=== PATIENT | male | born 1965 | race Caucasian/White ===

== ENCOUNTER 2016-03-03 11:11 | Outpatient (RCR) | payer OTHER ==
[~2016-03-03 11:11] MED LIST: ALPR1T PO; ALPR1TAB2 PO; BENZ200C25 PO; BUDE6HFA IH; CPR500T PO; CYCL10TA9 PO; FURO20TA4 PO; HYDR-623 PO; KETO-22 PO; LEVO750T6 PO; LORA1TAB PO; METH4TAB PO; ONDAN4ODT PO; OXYC1CAP3 PO; POTA10CA16 PO; RT-COMBINH IH; TMSL.4C PO; TRAM50TA2 PO
--- OUTSIDE RECORDS SUMMARY | 2016-03-03 11:14 | XMS REPORT | Continuity of Care Document ---
Author Author [facility] Organization [facility] Address Unknown Phone Unavailable Care Team Providers Care Assistive Technology Specialist Name Role Phone AntwanHarpreet PCP [phone] Source Comments Some departments are not documenting in the electronic medical record. If you do not see the information that you expected, contact Release of Information in the Health Information Management department at [phone] for further assistance in locating additional records.[facility] Active Allergies and Adverse Reactions No Known Allergies Current Medications Prescription Sig. Disp. Refills Start End Date Status Date OLANZAPINE/FLUOXETINE HCL Take by mouth. Active (SYMBYAX PO) lactulose 10 gram/15 mL Titrate to 3-5 BMs/day 1892 mL 11 12/31/19 Active oral solution 14 gabapentin (NEURONTIN) Take 3 Caps by mouth 270 Cap 11 11/03/19 Active 300 mg capsule three times daily. 15 nadolol(+) (CORGARD) 20 Take 1 Tab by mouth 90 Tab 3 11/30/19 Active mg tablet daily. Take at bedtime. 16 warfarin (COUMADIN) 3 mg Take 1 Tab by mouth 90 Tab 3 11/30/19 Active tablet daily. 16 propranolol (INDERAL) 20 Take 1 Tab by mouth twice 180 Tab 3 12/03/19 Active mg tablet daily. 16 carvedilol (COREG) 3.125 Take 1 Tab by mouth twice 180 Tab 3 12/03/19 Active mg tablet daily with meals. 16 sofosbuvir-velpatasvir Take 1 Tab by mouth 28 Tab 2 12/31/19 Active (EPCLUSA) 400-100 mg daily. Take at the same 16 tablet time everyday. Indications: CHRONIC HEPATITIS C - GENOTYPE 1 spironolactone Take 1 Tab by mouth 90 Tab 3 12/31/19 Active (ALDACTONE) 100 mg tablet daily. 16 furosemide (LASIX) 40 mg Take 1 Tab by mouth 90 Tab 3 12/31/19 Active tablet daily. 16 ribavirin (RIBATAB) 200 Take 3 Tabs by mouth 252 Tab 0 01/29/20 Active mg tablet daily. Take 2 tablets in 16 the morning and 1 in the evening. riFAXIMin (XIFAXAN) 550 Take 550 mg by mouth Active mg tablet every 12 hours. Active Problems Problem Noted Date Hepatitis C 09/23/2013 Cirrhosis (HCC) 09/23/2013 Alcoholic hepatitis 09/23/2013 Hepatic encephalopathy (HCC) 09/23/2013 Edema 09/23/2013 Most Recent Encounters Date Type Specialty Providers Description 01/31/2016 Telephone Hepatology Liz Hobson PHARMD Medication Follow- up 01/31/2016 Telephone Hepatology Luis Fierro MD Other - medication 01/29/2016 Telephone Hepatology Abeba Leone PHARMD Medication Follow-up 01/29/2016 Orders Only Hepatology Madelyn Osullivan PHARMD 01/28/2016 Documentation Transplant Surgery Ivania De Dios 01/22/2016 Scan Only HepatLuis Grigsby MD 01/18/2016 Telephone Hepatology Liz Hobson PHARMD Medication Follow- up 01/17/2016 Telephone Hepatology Liz Hobson PHARMD Medication Follow- up 01/17/2016 Documentation Kwame Cuenca 01/16/2016 Telephone HepatLuis Grigsby MD Other - medication 01/16/2016 Telephone HepatLuis Grigsby MD Results 01/10/2016 Orders Only HepatDamari Clark Hepatitis C virus infection without hepatic coma, unspecified chronicity; Other cirrhosis of liver (HCC) 01/02/2016 Scan Only HepatLuis Grigsby MD 12/31/2015 Office Visit Hepatology Luis Fierro MD Hepatic cirrhosis , unspecified hepatic cirrhosis type (HCC) (Primary Dx); Hepatitis C virus infection, unspecified chronicity; Edema, unspecified type 12/28/2015 Telephone HepatLuis Grigsby MD Results 12/27/2015 Orders Only HepatDamari Clark Other cirrhosis of liver (HCC); Hepatitis C virus infection without hepatic coma, unspecified chronicity 12/26/2015 Orders Only HepatDamari Clark Other cirrhosis of liver (HCC); Hepatitis C virus infection without hepatic coma, unspecified chronicity 12/26/2015 Telephone Hepatology Luis Fierro MD Other 12/24/2015 Telephone Hepatology Luis Fierro MD Patient Reminder Call 12/20/2015 Orders Only Transplant Surgery Lula Cintron Other cirrhosis of liver (HCC); Hepatitis C virus infection without hepatic coma, unspecified chronicity 12/18/2015 Telephone Transplant Surgery GaleMadelyn mcdaniel Follow Up 12/18/2015 Scan Only Hepatology Luis Fierro MD 12/17/2015 Telephone Hepatology Luis Fierro MD Results 12/14/2015 Orders Only Hepatology Leeanne Morris Hepatitis C virus infection without hepatic coma, unspecified chronicity; Other cirrhosis of liver (HCC) 12/11/2015 Telephone Hepatology Luis Fierro MD Follow-up Phone Call 12/06/2015 Orders Only Hepatology Damari Griffin Hepatitis C virus infection, unspecified chronicity; Hepatic cirrhosis, unspecified hepatic cirrhosis type (HCC); Alcoholic hepatitis without ascites 12/06/2015 Orders Only Hepatology Luis Fierro MD Hepatitis C virus infection, unspecified chronicity (Primary Dx); Hepatic cirrhosis, unspecified hepatic cirrhosis type (HCC); Alcoholic hepatitis without ascites 12/05/2015 Documentation BartolomeLaci moraesine 12/05/2015 Scan Only Hepatology Luis Fierro MD 12/05/2015 Telephone Hepatology Luis Fierro MD Results 12/04/2015 Orders Only Hepatology Leeanne Morris Hepatitis C virus infection without hepatic coma, unspecified chronicity 12/04/2015 Scan Only Hepatology Luis Fierro MD 12/03/2015 Telephone Hepatology Luis Fierro MD Medication Problem Social History Tobacco Use Types Packs/Day Years Used Date Current Every Day Smoker Tobacco Cessation: Ready to Quit: Yes; Counseling Given: No Comments: 1 pack every 3 day's Alcohol Use Drinks/Week oz/Week Comments Yes occationally Last Filed Vital Signs Vital Sign Reading Time Taken Blood Pressure 144/77 12/31/2015 1:59 PM CDT Pulse 58 12/31/2015 1:59 PM CDT Temperature 36.6 C (97.9 F) 12/31/2015 1:59 PM CDT Respiratory Rate 18 12/31/2015 1:59 PM CDT Height 1.905 m (6' 3") 12/31/2015 1:59 PM CDT Weight 106.051 kg (233 lb 12.8 12/31/2015 1:59 PM CDT oz) Body Mass Index 29.22 12/31/2015 1:59 PM CDT Oxygen Saturation 98% 12/31/2015 1:59 PM CDT Plan of Care Date Type Specialty Providers Description 06/30/2016 Appointment Hepatology Luis Fierro MD [address] [facility] [address] [place] [address] [phone] (Fax) Health Maintenance Due Date Last Done Comments Physical (Comprehensive) 10/23/1971 Exam Pertussis Vaccine 10/23/1975 Tetanus Vaccine 1981 Colorectal Cancer 2014 Screening Influenza Vaccine 01/10/2016 Results from Last 3 Months PROTIME INR (PT) (01/10/2016 11:52 AM)Only the most recent of 3 results within the time period is included. Component Value Range Protime 23.8 (H) 12.2-14.7 SEC INR 2.2 (H) 0.8-1.4 Specimen Blood Narrative Outside Lab Verified by Damari Nguyen on 01/10/2016. COMPREHENSIVE METABOLIC PANEL (01/10/2016 11:52 AM)Only the most recent of 3 results within the time period is included. Component Value Range Sodium 142 135-145 MMOL/L Potassium 3.9 3.6-5.0 MMOL/L Chloride 112 (H) 98-107 MMOL/L CO2 24 21-32 MMOL/L Anion Gap 6 5-14 MMOL/L Blood Urea Nitrogen 9 7-18 MG/DL Creatinine 0.89 0.60-1.30 MG/DL eGFR Non >60 mL/min/1.73 Glucose 129 (H) 70-105 MG/DL Total Bilirubin 2.2 (H) 0.1-1.0 MG/DL Alk Phosphatase 83 40-136 U/L AST (SGOT) 53 (H) 5-34 H ALT (SGPT) 42 0-55 U/L Total Protein 5.6 (L) 6.4-8.2 G/DL Albumin 3.0 (L) 3.2-4.5 G/DL Calcium 8.0 (L) 8.5-10.1 mg/dl Specimen Blood Narrative Outside Lab Verified by Damari Nguyen on 01/10/2016. CBC AND DIFF (01/10/2016 11:52 AM)Only the most recent of 3 results within the time period is included. Component Value Range Absolute Neutrophil Count 1.5 (L) 1.8-7.8 10^3/ul Absolute Lymph Count 1.8 1.0-4.0 10^3/ul Absolute Monocyte Count 0.5 0.0-1.0 10^3/ul Absolute Eosinophil Count 0.2 0.0-0.3 10^3/ul Absolute Basophil Count 0.0 0.0-0.1 10^3/ul White Blood Cells 4.0 (L) 4.3-11.0 10^3/ul RBC 4.11 (L) 4.35-5.85 10^6/uL Hemoglobin 13.8 13.3-17.7 g/dl Hematocrit 39 (L) 40-54 % MCV 94 80-99 fl MCH 34 25-34 pg MCHC 36 32-36 g/dl Platelet Count 93 (L) 130-400 10^3/ul Neutrophils 37 (L) 42-75 % Lymphocytes 46 (H) 12-44 % Monocytes 13 (H) 0-12 % Eosinophil 4 0-10 % Basophil 1 0-10 % Specimen Blood Narrative Outside Lab Verified by Damari Nguyen on 01/10/2016.
[2016-03-03 11:29] LABS: BASOPHILS % (AUTO) 1 % (0-10); EOSINOPHILS # (AUTO) 0.1 10^3/uL (0.0-0.3); EOSINOPHILS % (AUTO) 3 % (0-10); LYMPHOCYTES # (AUTO) 1.6 X 10^3 (1.0-4.0); LYMPHOCYTES % (AUTO) 33 % (12-44); MEAN CORPUSCULAR HEMOGLOBIN 33 PG (25-34); MEAN CORPUSCULAR HGB CONC 35 G/DL (32-36); MEAN CORPUSCULAR VOLUME 94 FL (80-99); MEAN PLATELET VOLUME 10.8 FL (7.4-10.4); MONOCYTES # (AUTO) 0.6 X 10^3 (0.0-1.0); MONOCYTES % (AUTO) 13 % (0-12); NEUTROPHILS # (AUTO) 2.4 X 10^3 (1.8-7.8); NEUTROPHILS % (AUTO) 51 % (42-75); PLATELET COUNT 98 10^3/uL (130-400); RED BLOOD COUNT 3.83 10^6/uL (4.35-5.85); RED CELL DISTRIBUTION WIDTH 14.1 % (10.0-14.5); WHITE BLOOD COUNT 4.8 10^3/uL (4.3-11.0)
[2016-03-03 11:37] LABS: INR 2.1 (0.8-1.4); PROTHROMBIN TIME PATIENT 23.1 SEC (12.2-14.7)
[2016-03-03 11:50] LABS: ALANINE AMINOTRANSFERASE 14 U/L (0-55); ALBUMIN 2.8 G/DL (3.2-4.5); ANION GAP 5 MMOL/L (5-14); ASPARTATE AMINO TRANSFERASE 25 U/L (5-34); BILIRUBIN,TOTAL 2.9 MG/DL (0.1-1.0); BLOOD UREA NITROGEN 6 MG/DL (7-18); BUN/CREATININE RATIO 8; CALCIUM 7.8 MG/DL (8.5-10.1); CARBON DIOXIDE 21 MMOL/L (21-32); CHLORIDE 112 MMOL/L (98-107); CREATININE SERUM 0.74 MG/DL (0.60-1.30); GFR ESTIMATED > 60; GLUCOSE 135 MG/DL (70-105); POTASSIUM 3.7 MMOL/L (3.6-5.0); SODIUM 138 MMOL/L (135-145); TOTAL PROTEIN 5.4 G/DL (6.4-8.2)
[2016-03-04 09:38] LABS: ALPHA-FETO PROTEIN MARKER 4.6 ng/mL (1.5-10.0)
[2016-03-05 15:14] LABS: HEP C COPIES ML <12 IU/mL (<=11); HEPATITIS C LOG ML Detected <1.08 (Not Detected)
== END 2016-06-01 | disposition home or self-care (01) ==
LOC: LAB 11:11
PROVIDERS: ATTEND Internal Medicine
DX: B19.20 Unspecified viral hepatitis C without hepatic coma (principal); K74.69 Other cirrhosis of liver
CPT/HCPCS: 36415; 80053; 82105; 85025; 85610; 87522

== ENCOUNTER 2016-04-01 11:03 | Outpatient (RCR) | payer OTHER ==
--- OUTSIDE RECORDS SUMMARY | 2016-04-01 11:08 | XMS REPORT | Continuity of Care Document ---
Author Author [facility] Organization [facility] Address Unknown Phone Unavailable Care Team Providers Care Wood Floor Refinisher Name Role Phone AntwanHarpreet PCP [phone] Source Comments Some departments are not documenting in the electronic medical record. If you do not see the information that you expected, contact Release of Information in the Health Information Management department at [phone] for further assistance in locating additional records.[facility] Active Allergies and Adverse Reactions No Known [...] Recent Encounters Date Type Specialty Providers Description 03/10/2016 Orders Only Hepatology Damari Griffin Hepatitis C virus infection, unspecified chronicity; Other cirrhosis of liver (HCC) 03/07/2016 Telephone Hepatology Luis Fierro MD Results 03/06/2016 Orders Only Hepatology Damari Griffin Hepatitis C virus infection, unspecified chronicity; Other cirrhosis of liver (HCC) 03/05/2016 Orders Only Hepatology Damari Griffin Hepatitis C virus infection, unspecified chronicity; Other cirrhosis of liver (HCC) 03/05/2016 Telephone Hepatology Luis Fierro MD Follow-up Phone Call 01/31/2016 Telephone Hepatology Liz Hobson PHARMD Medication Follow- up 01/31/2016 Telephone HepatLuis Grigsby MD Other - medication 01/29/2016 Telephone Hepatology Abeba Leone PHARMD Medication Follow-up 01/29/2016 Orders Only Hepatology Madelyn Osullivan, [place] 01/28/2016 Documentation Transplant Surgery Ivania De Dios 01/22/2016 Scan Only HepatLuis Grigsby MD 01/18/2016 Telephone Hepatology Liz Hobson PHARMD Medication Follow- up 01/17/2016 Telephone Hepatology Liz Hobson PHARMD Medication Follow- up 01/17/2016 Documentation Kwame Cuenca 01/16/2016 Telephone HepatLuis Grigsby MD Other - medication 01/16/2016 Telephone HepatLuis Grigsby MD Results 01/10/2016 Orders Only Hepatology Damari Griffin Hepatitis C virus infection without hepatic coma, unspecified chronicity; Other cirrhosis of liver (HCC) 01/02/2016 Scan Only Hepatology Luis Fierro MD 12/31/2015 Office Visit Hepatology Luis Fierro MD Hepatic cirrhosis , unspecified hepatic cirrhosis type (HCC) (Primary Dx); Hepatitis C virus infection, unspecified chronicity; Edema, unspecified type Social History Tobacco Use Types Packs/Day Years [...] 12/31/2015 1:59 PM CDT Plan of Care Health Maintenance Due Date Last Done Comments Physical (Comprehensive) 10/23/1971 Exam Pertussis Vaccine 10/23/1975 Tetanus Vaccine 1981 Colorectal Cancer 2014 Screening Influenza Vaccine 01/10/2016 Results from Last 3 Months HEPATITIS C VIRAL LOAD PCR QUANT (03/03/2016 11:22 AM) Component Value Range Hepatitis C PCR <12 <=11 iu/ml Quantitative Specimen Blood Narrative Outside Lab Verified by Damari Nguyen on 03/10/2016. COMPREHENSIVE METABOLIC PANEL (03/03/2016 11:22 AM)Only the most recent of 2 results within the time period is included. Component Value Range Sodium 138 135-145 MMOL/L Potassium 3.7 3.6-5.0 MMOL/L Chloride 112 (H) 98-107 MMOL/L CO2 21 21-32 MMOL/L Anion Gap 5 5-14 MMOL/L Blood Urea Nitrogen 6 (L) 7-18 MG/DL Creatinine 0.74 0.60-1.30 MG/DL eGFR Non >60 mL/min/1.73 M2 Glucose 135 (H) 70-105 H Calcium 7.8 (L) 8.5-10.1 MG/DL Total Bilirubin 2.9 (H) 0.1-1.0 H Alk Phosphatase 102 40-136 U/L AST (SGOT) 25 5-34 U/L ALT (SGPT) 14 0-55 U/L Total Protein 5.4 (L) 6.4-8.2 G/DL Albumin 2.8 (L) 3.2-4.5 G/DL Specimen Blood Narrative Outside Lab Verified by Damari Nguyen on 03/06/2016. PROTIME INR (PT) (03/03/2016 11:22 AM)Only the most recent of 2 results within the time period is included. Component Value Range Protime 23.1 (H) 12.2-14.7 SEC INR 2.1 (H) 0.8-1.4 Specimen Blood Narrative Outside Lab Verified by Damari Nguyen on 03/06/2016. CBC AND DIFF (03/03/2016 11:22 AM)Only the most recent of 2 results within the time period is included. Component Value Range Absolute Neutrophil Count 2.4 1.8-7.8 10^3/uL Absolute Lymph Count 1.6 1.0-4.0 10^3/uL Absolute Monocyte Count 0.6 0.0-1.0 10^3/uL Absolute Eosinophil Count 0.1 0.0-0.3 10^3/uL Absolute Basophil Count 0.0 0.0-0.1 10^3/uL White Blood Cells 4.8 4.3-11.0 10^3/uL RBC 3.83 (L) 4.35-5.85 10^6/ul Hemoglobin 12.6 (L) 13.3-17.7 g/dl Hematocrit 36 (L) 40-54 % MCV 94 80-99 fl MCH 33 25-34 pg MCHC 35 32-36 g/dl Platelet Count 98 (L) 130-400 10^3/uL Neutrophils 51 42-75 % Lymphocytes 33 12-44 % Monocytes 13 (H) 0-12 % Eosinophil 3 0-10 % Basophil 1 0-10 % Specimen Blood Narrative Outside Lab Verified by Damari Nguyen on 03/06/2016. ALPHA FETO PROTEIN (AFP) (03/03/2016 11:22 AM) Component Value Range Alpha Feto Protein 4.6 1.5-10.0 ng/ml Specimen Blood Narrative Outside Lab Verified by Damari Nguyen on 03/05/2016.
[2016-04-01 11:29] LABS: BASOPHILS % (AUTO) 1 % (0-10); EOSINOPHILS # (AUTO) 0.2 10^3/uL (0.0-0.3); EOSINOPHILS % (AUTO) 5 % (0-10); LYMPHOCYTES # (AUTO) 1.4 X 10^3 (1.0-4.0); LYMPHOCYTES % (AUTO) 41 % (12-44); MEAN CORPUSCULAR HEMOGLOBIN 33 PG (25-34); MEAN CORPUSCULAR HGB CONC 35 G/DL (32-36); MEAN CORPUSCULAR VOLUME 95 FL (80-99); MEAN PLATELET VOLUME 10.9 FL (7.4-10.4); MONOCYTES # (AUTO) 0.4 X 10^3 (0.0-1.0); MONOCYTES % (AUTO) 13 % (0-12); NEUTROPHILS # (AUTO) 1.3 X 10^3 (1.8-7.8); NEUTROPHILS % (AUTO) 40 % (42-75); PLATELET COUNT 93 10^3/uL (130-400); RED CELL DISTRIBUTION WIDTH 14.3 % (10.0-14.5); WHITE BLOOD COUNT 3.3 10^3/uL (4.3-11.0)
[2016-04-01 11:44] LABS: INR 1.9 (0.8-1.4); PROTHROMBIN TIME PATIENT 21.3 SEC (12.2-14.7)
[2016-04-01 11:51] LABS: ALANINE AMINOTRANSFERASE 14 U/L (0-55); ALBUMIN 2.8 G/DL (3.2-4.5); ANION GAP 5 MMOL/L (5-14); ASPARTATE AMINO TRANSFERASE 25 U/L (5-34); BILIRUBIN,TOTAL 1.9 MG/DL (0.1-1.0); BLOOD UREA NITROGEN 7 MG/DL (7-18); BUN/CREATININE RATIO 9; CALCIUM 7.9 MG/DL (8.5-10.1); CARBON DIOXIDE 21 MMOL/L (21-32); CHLORIDE 111 MMOL/L (98-107); CREATININE SERUM 0.77 MG/DL (0.60-1.30); GFR ESTIMATED > 60; GLUCOSE 229 MG/DL (70-105); POTASSIUM 3.7 MMOL/L (3.6-5.0); SODIUM 137 MMOL/L (135-145)
[2016-04-02 06:39] LABS: ALPHA-FETO PROTEIN MARKER 4.8 ng/mL (1.5-10.0)
[2016-04-07 15:18] LABS: HEP C COPIES ML Not Detected (<=11)
[2016-04-08 07:43] LABS: HEPATITIS C LOG ML Not Detected (Not Detected)
== END 2016-06-30 | disposition home or self-care (01) ==
LOC: LAB 11:03
PROVIDERS: ATTEND Internal Medicine
DX: B19.20 Unspecified viral hepatitis C without hepatic coma (principal); K74.69 Other cirrhosis of liver
CPT/HCPCS: 36415; 80053; 82105; 85025; 85610; 87522

== ENCOUNTER → 2016-06-24 | Outpatient (CLI) | payer OTHER ==
[~2016-06-24] MED LIST changes: +PANT40TA2 PO; +SUCR1TAB36 PO; +WARF1TAB6 PO
--- OUTSIDE RECORDS SUMMARY | 2016-06-24 09:08 | XMS REPORT | Continuity of Care Document ---
Author Author [facility] Organization [facility] Address Unknown Phone Unavailable Care Team Providers Care Charting Clerk Name Role Phone AntwanHarpreet PCP [phone] Source Comments Some departments are not documenting in the electronic medical record. If you do not see the information that you expected, contact Release of Information in the Health Information Management department at [phone] for further assistance in locating additional records.[facility] Active Allergies and Adverse Reactions [...] Recent Encounters Date Type Specialty Providers Description 06/11/2016 Telephone Hepatology Luis Fierro MD Other - medication/ lab questions 05/08/2016 Orders Only Hepatology Damari Griffin Hepatitis C virus infection, unspecified chronicity; Other cirrhosis of liver (HCC) 04/10/2016 Orders Only HepatDamari Clark Hepatitis C virus infection, unspecified chronicity; Other cirrhosis of liver (HCC) 04/09/2016 Orders Only Hepatology Damari Griffin Hepatitis C virus infection, unspecified chronicity; Other cirrhosis of liver (HCC) 04/09/2016 Telephone Hepatology Luis Fierro MD Results 04/07/2016 Orders Only HepatDamari Clark Hepatitis C virus infection, unspecified chronicity; Other cirrhosis of liver (HCC) Social History Tobacco Use Types Packs/Day Years [...] of Care Date Type Specialty Providers Description 07/14/2016 Appointment Hepatology Luis Fierro MD [address] [facility] [address] [place] [address] [phone] (Fax) Health Maintenance Due Date Last Done Comments Physical (Comprehensive) 10/23/1971 Exam Pertussis Vaccine 10/23/1975 Tetanus Vaccine 1981 Colorectal Cancer 2014 Screening Influenza Vaccine 01/10/2016 Results from Last 3 Months CBC AND DIFF (05/06/2016 1:30 PM)Only the most recent of 2 results within the time period is included. Component Value Range White Blood Cells 4.6 4.3-11.0 uL RBC 3.54 (L) 4.35-5.85 10^6/uL Hemoglobin 11.6 (L) 13.3-17.7 G/DL Hematocrit 34 (L) 40-54 % MCV 95 80-99 FL MCH 33 25-34 PG MCHC 35 32-36 G/DL Platelet Count 122 (L) 130-400 10^3/uL Neutrophils 64 42-75 % Lymphocytes 27 12-44 % Monocytes 7 0-12 % Eosinophil 2 0-10 % Basophil 0 % Absolute Lymph Count 1.2 1.0-4.0 10^3/uL Absolute Monocyte Count 0.3 0.0-1.0 10^3/uL Absolute Eosinophil Count 0.1 0.0-0.3 10^3/uL Absolute Basophil Count 0.0 0.0-0.1 10^3/uL Absolute Neutrophil Count 2.9 1.8-7.8 10^3/uL Specimen Blood Narrative Outside Lab Verified by Damari Nguyen on 05/08/2016. HEPATITIS C VIRAL LOAD PCR QUANT (04/01/2016 11:18 AM) Component Value Range Hepatitis C PCR not detected Quantitative Specimen Blood Narrative Outside Lab Verified by Damari Nguyen on 04/10/2016. ALPHA FETO PROTEIN (AFP) (04/01/2016 11:18 AM) Component Value Range Alpha Feto Protein 4.8 1.5-10.0 ng/ml Specimen Blood Narrative Outside Lab Verified by Damari Nguyen on 04/07/2016. PROTIME INR (PT) (04/01/2016 11:18 AM) Component Value Range Protime 21.3 (H) 12.2-14.7 SEC INR 1.9 (H) 0.8-1.4 Specimen Blood Narrative Outside Lab Verified by Damari Nguyen on 04/07/2016. COMPREHENSIVE METABOLIC PANEL (04/01/2016 11:18 AM) Component Value Range Sodium 137 135-145 MMOL/L Potassium 3.7 3.6-5.0 MMOL/L Chloride 111 (H) 98-107 MMOL/L CO2 21 21-32 MMOL/L Anion Gap 5 5-14 MMOL/L Blood Urea Nitrogen 7 7-18 MG/DL Creatinine 0.77 0.60-1.30 MG/DL eGFR Non >60 mL/min/1.73 M2 Glucose 229 (H) 70-105 H Calcium 7.9 (L) 8.5-10.1 MG/DL Total Bilirubin 1.9 (H) 0.1-1.0 H Alk Phosphatase 92 40-136 U/L AST (SGOT) 25 5-34 U/L ALT (SGPT) 14 0-55 U/L Total Protein 5.0 (L) 6.4-8.2 G/DL Albumin 2.8 (L) 3.2-4.5 G/DL Specimen Blood Narrative Outside Lab Verified by Damari Nguyen on 04/07/2016.
--- NOTE | 2016-06-24 13:01 | Diagnostic Imaging Report ---
EXAMINATION: Doppler vascular ultrasound. INDICATION: Cirrhosis. History of portal venous thrombosis. FINDINGS: The pancreas is obscured by bowel loops. There is occlusion of the main portal vein with prominence of the hepatic artery branches centrally. There is no focal hepatic mass. The gallbladder demonstrates no stones, wall thickening or pericholecystic fluid. CBD is obscured. The spleen is slightly enlarged at 14 cm in length. The visualized portions of the IVC near the confluence of the hepatic veins appear patent with color flow seen. The right kidney is 11.6 cm and the left kidney is 13.8 cm in length. No hydronephrosis or focal lesion seen. The splenic vein and splenic artery appear patent. No ascites seen. 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 Mild to moderate splenomegaly. Dictated by: Dictated on workstation # [id number]
== END ==
LOC: RAD 09:05
PROVIDERS: ATTEND Internal Medicine
DX: K74.69 Other cirrhosis of liver (principal); I82.90 Acute embolism and thrombosis of unspecified vein
CPT/HCPCS: 93975

== ENCOUNTER 2016-08-14 14:43 | Outpatient (RCR) | payer OTHER ==
--- OUTSIDE RECORDS SUMMARY | 2016-07-24 10:47 | XMS REPORT | Continuity of Care Document ---
Author Author [facility] Organization [facility] Address Unknown Phone Unavailable Care Team Providers Care Certified Juvenile Probation Officer Name Role Phone Viviennemechelle Brendan PCP [phone] Source Comments Some departments are not documenting in the electronic medical record. If you do not see the information that you expected, contact Release of Information in the Health Information Management department at [phone] for further assistance in locating additional records.[facility] Active Allergies and Adverse Reactions [...] mg tablet daily. Take at bedtime. 16 propranolol (INDERAL) 20 Take 1 Tab [...] 1 Tab by mouth 90 Tab 3 08/22/20 Active tablet daily. 16 ribavirin (RIBATAB) 200 Take 3 Tabs by mouth 252 Tab 0 01/29/20 Active mg tablet daily. Take 2 tablets in 16 the morning and 1 in the evening. riFAXIMin (XIFAXAN) 550 Take 550 mg by mouth Active mg tablet every 12 hours. warfarin (COUMADIN) 3 mg Take 0.5 Tabs by mouth 45 Tab 3 07/15/19 Active tablet daily. 17 warfarin (COUMADIN) 3 mg Take 1 Tab by mouth 90 Tab 3 11/30/1907/14 Discontin tablet daily. 16 17 ued Active Problems Problem Noted Date Hepatitis C 09/23/2013 Cirrhosis (HCC) 09/23/2013 Alcoholic hepatitis 09/23/2013 Hepatic encephalopathy (HCC) 09/23/2013 Edema 09/23/2013 Most Recent Encounters Date Type Specialty Providers Description 07/24/2016 Telephone Hepatology Luis Fierro MD Follow-up Phone Call 07/16/2016 Telephone Hepatology Luis Fierro MD Results 07/16/2016 Telephone Hepatology Luis Fierro MD Appointment 07/14/2016 [facility] Luis Fierro MD Unspecified cirrhosis of Encounter liver (HCC) 07/14/2016 Office Visit Hepatology Luis Fierro MD Hepatic cirrhosis , unspecified hepatic cirrhosis type (Primary Dx); Hepatitis C virus infection, unspecified chronicity; Screening for colorectal cancer; Hepatitis C virus infection without hepatic coma, unspecified chronicity; Other cirrhosis of liver (HCC); Hepatic encephalopathy (HCC) 07/07/2016 Telephone Hepatology Luis Fierro MD Patient Reminder Call 07/03/2016 Telephone Hepatology Luis Fierro MD Results 06/27/2016 Orders Only Hepatology Kristin Alfaro LPN Other cirrhosis of liver (HCC); Thrombosis 06/11/2016 Telephone Hepatology Luis Fierro MD Other [...] Vital Sign Reading Time Taken Blood Pressure 152/82 07/14/2016 12:46 PM THERMOMETER TESTER Pulse 98 07/14/2016 12:46 PM THERMOMETER TESTER Temperature 36.8 C (98.3 F) 07/14/2016 12:46 PM THERMOMETER TESTER Respiratory Rate 20 07/14/2016 12:46 PM THERMOMETER TESTER Height 1.905 m (6' 3") 07/14/2016 12:46 PM THERMOMETER TESTER Weight 104.327 kg (230 lb) 07/14/2016 12:46 PM THERMOMETER TESTER Body Mass Index 28.75 07/14/2016 12:46 PM THERMOMETER TESTER Oxygen Saturation 98% 07/14/2016 12:46 PM THERMOMETER TESTER Plan of Care Date Type Specialty Providers Description 12/15/2016 Appointment Radiology Luis Fierro MD [address] [facility] [address] [place] [address] [phone] (Fax) 12/15/2016 Appointment Hepatology Luis Fierro MD [address] [facility] [address] [place] [address] [phone] (Fax) Health Maintenance Due Date Last Done Comments Physical (Comprehensive) 10/23/1971 Exam Pertussis Vaccine 10/23/1975 Tetanus Vaccine 1981 Colorectal Cancer 2014 Screening Influenza Vaccine 01/09/2017 Results from Last 3 Months PROTIME INR (PT) (07/14/2016 2:00 PM) Component Value Range INR 1.5 (H) 0.8-1.2 Specimen Blood COMPREHENSIVE METABOLIC PANEL (07/14/2016 2:00 PM) Component Value Range Sodium 140 137-147 MMOL/L Potassium 3.8 3.5-5.1 MMOL/L Chloride 109 98-110 MMOL/L Glucose 92 70-100 MG/DL Blood Urea Nitrogen 6 (L) 7-25 MG/DL Creatinine 0.80 0.4-1.24 MG/DL Calcium 8.6 8.5-10.6 MG/DL Total Protein 6.0 6.0-8.0 G/DL Total Bilirubin 1.8 (H) 0.3-1.2 MG/DL Albumin 3.2 (L) 3.5-5.0 G/DL Alk Phosphatase 105 25-110 U/L AST (SGOT) 27 7-40 U/L CO2 24 21-30 MMOL/L ALT (SGPT) 15 7-56 U/L Anion Gap 7 3-12 eGFR Non >60Comment: >60 mL/min The eGFR is not validated for use in drug dosing adjustments. Continue to use estimated creatinine clearance per dosing reference text. Please contact the Clinical Pharmacist for questions. eGFR >60Comment: >60 mL/min The eGFR is not validated for use in drug dosing adjustments. Continue to use estimated creatinine clearance per dosing reference text. Please contact the Clinical Pharmacist for questions. Specimen Blood CBC AND DIFF (07/14/2016 2:00 PM)Only the most recent of 2 results within the time period is included. Component Value Range White Blood Cells 3.9 (L) 4.5-11.0 K/UL RBC 4.01 (L) 4.4-5.5 M/UL Hemoglobin 13.5 13.5-16.5 GM/DL Hematocrit 39.2 (L) 40-50 % MCV 97.8 80-100 FL MCH 33.6 26-34 PG MCHC 34.4 32.0-36.0 G/DL RDW 16.3 (H) 11-15 % Platelet Count 100 (L) 150-400 K/UL MPV 9.3 7-11 FL Neutrophils 38 (L) 41-77 % Lymphocytes 49 (H) 24-44 % Monocytes 11 4-12 % Eosinophils 1 0-5 % Basophils 1 0-2 % Absolute Neutrophil Count 1.50 (L) 1.8-7.0 K/UL Absolute Lymph Count 1.90 1.0-4.8 K/UL Absolute Monocyte Count 0.40 0-0.80 K/UL Absolute Eosinophil Count 0.00 0-0.45 K/UL Absolute Basophil Count 0.00 0-0.20 K/UL Specimen Blood HEPATITIS C VIRAL LOAD PCR QUANT (07/14/2016 2:00 PM) Component Value Range Hepatitis C PCR HCV RNA Not Detected, <12 IU/mLComment: <12 IU/ML Quantitative The test method detects HCV viral load using the Nguyen RealTime assay. Please correlate results with the clinical status of the patient. Log 10 HCV <1.08 <1.08 IU/mL Specimen Blood US DOPPLER ABD PELV RETROPER COMP (06/24/2016)
[2016-07-24 11:04] LABS: BASOPHILS % (AUTO) 1 % (0-10); EOSINOPHILS # (AUTO) 0.1 10^3/uL (0.0-0.3); EOSINOPHILS % (AUTO) 4 % (0-10); LYMPHOCYTES % (AUTO) 54 % (12-44); MEAN CORPUSCULAR HEMOGLOBIN 33 PG (25-34); MEAN CORPUSCULAR HGB CONC 35 G/DL (32-36); MEAN CORPUSCULAR VOLUME 95 FL (80-99); MEAN PLATELET VOLUME 10.3 FL (7.4-10.4); MONOCYTES # (AUTO) 0.5 X 10^3 (0.0-1.0); MONOCYTES % (AUTO) 13 % (0-12); NEUTROPHILS # (AUTO) 1.1 X 10^3 (1.8-7.8); NEUTROPHILS % (AUTO) 29 % (42-75); PLATELET COUNT 100 10^3/uL (130-400); RED BLOOD COUNT 3.89 10^6/uL (4.35-5.85); RED CELL DISTRIBUTION WIDTH 14.5 % (10.0-14.5); WHITE BLOOD COUNT 3.8 10^3/uL (4.3-11.0)
[2016-07-24 11:18] LABS: INR 1.7 (0.8-1.4); PROTHROMBIN TIME PATIENT 19.7 SEC (12.2-14.7)
[2016-07-24 11:27] LABS: ALANINE AMINOTRANSFERASE 15 U/L (0-55); ALBUMIN 2.9 G/DL (3.2-4.5); ANION GAP 7 MMOL/L (5-14); ASPARTATE AMINO TRANSFERASE 25 U/L (5-34); BILIRUBIN,TOTAL 1.6 MG/DL (0.1-1.0); BLOOD UREA NITROGEN 9 MG/DL (7-18); BUN/CREATININE RATIO 12; CALCIUM 7.8 MG/DL (8.5-10.1); CARBON DIOXIDE 22 MMOL/L (21-32); CHLORIDE 114 MMOL/L (98-107); CREATININE SERUM 0.75 MG/DL (0.60-1.30); GFR ESTIMATED > 60; GLUCOSE 111 MG/DL (70-105); POTASSIUM 4.1 MMOL/L (3.6-5.0); SODIUM 143 MMOL/L (135-145); TOTAL PROTEIN 5.5 G/DL (6.4-8.2)
[2016-08-04 09:04] LABS: BASOPHILS % (AUTO) 1 % (0-10); EOSINOPHILS # (AUTO) 0.2 10^3/uL (0.0-0.3); EOSINOPHILS % (AUTO) 3 % (0-10); LYMPHOCYTES # (AUTO) 1.9 X 10^3 (1.0-4.0); LYMPHOCYTES % (AUTO) 38 % (12-44); MEAN CORPUSCULAR HEMOGLOBIN 34 PG (25-34); MEAN CORPUSCULAR HGB CONC 35 G/DL (32-36); MEAN CORPUSCULAR VOLUME 96 FL (80-99); MEAN PLATELET VOLUME 10.6 FL (7.4-10.4); MONOCYTES # (AUTO) 0.7 X 10^3 (0.0-1.0); MONOCYTES % (AUTO) 13 % (0-12); NEUTROPHILS # (AUTO) 2.3 X 10^3 (1.8-7.8); NEUTROPHILS % (AUTO) 45 % (42-75); PLATELET COUNT 125 10^3/uL (130-400); RED BLOOD COUNT 3.79 10^6/uL (4.35-5.85); RED CELL DISTRIBUTION WIDTH 14.3 % (10.0-14.5); WHITE BLOOD COUNT 5.1 10^3/uL (4.3-11.0)
[2016-08-04 09:14] LABS: INR 1.8 (0.8-1.4); PROTHROMBIN TIME PATIENT 20.4 SEC (12.2-14.7)
[2016-08-04 09:24] LABS: ALANINE AMINOTRANSFERASE 13 U/L (0-55); ANION GAP 5 MMOL/L (5-14); ASPARTATE AMINO TRANSFERASE 25 U/L (5-34); BLOOD UREA NITROGEN 7 MG/DL (7-18); BUN/CREATININE RATIO 9; CALCIUM 7.8 MG/DL (8.5-10.1); CARBON DIOXIDE 23 MMOL/L (21-32); CHLORIDE 111 MMOL/L (98-107); GFR ESTIMATED > 60; GLUCOSE 174 MG/DL (70-105); POTASSIUM 3.8 MMOL/L (3.6-5.0); SODIUM 139 MMOL/L (135-145); TOTAL PROTEIN 5.3 G/DL (6.4-8.2)
[~2016-08-14 14:43] MED LIST changes: -PANT40TA2 PO; -SUCR1TAB36 PO; -WARF1TAB6 PO
[2016-08-14 14:59] LABS: BASOPHILS % (AUTO) 1 % (0-10); EOSINOPHILS # (AUTO) 0.2 10^3/uL (0.0-0.3); EOSINOPHILS % (AUTO) 4 % (0-10); LYMPHOCYTES # (AUTO) 2.9 X 10^3 (1.0-4.0); LYMPHOCYTES % (AUTO) 52 % (12-44); MEAN CORPUSCULAR HEMOGLOBIN 33 PG (25-34); MEAN CORPUSCULAR HGB CONC 35 G/DL (32-36); MEAN CORPUSCULAR VOLUME 96 FL (80-99); MEAN PLATELET VOLUME 10.3 FL (7.4-10.4); MONOCYTES # (AUTO) 0.8 X 10^3 (0.0-1.0); MONOCYTES % (AUTO) 14 % (0-12); NEUTROPHILS # (AUTO) 1.7 X 10^3 (1.8-7.8); NEUTROPHILS % (AUTO) 30 % (42-75); PLATELET COUNT 114 10^3/uL (130-400); RED BLOOD COUNT 4.04 10^6/uL (4.35-5.85); RED CELL DISTRIBUTION WIDTH 13.9 % (10.0-14.5); WHITE BLOOD COUNT 5.6 10^3/uL (4.3-11.0)
[2016-08-14 15:14] LABS: INR 1.9 (0.8-1.4); PROTHROMBIN TIME PATIENT 21.3 SEC (12.2-14.7)
[2016-08-14 15:25] LABS: ALANINE AMINOTRANSFERASE 15 U/L (0-55); ALBUMIN 3.1 G/DL (3.2-4.5); ANION GAP 7 MMOL/L (5-14); ASPARTATE AMINO TRANSFERASE 27 U/L (5-34); BILIRUBIN,TOTAL 1.9 MG/DL (0.1-1.0); BLOOD UREA NITROGEN 9 MG/DL (7-18); BUN/CREATININE RATIO 12; CALCIUM 7.9 MG/DL (8.5-10.1); CARBON DIOXIDE 21 MMOL/L (21-32); CHLORIDE 112 MMOL/L (98-107); CREATININE SERUM 0.77 MG/DL (0.60-1.30); GFR ESTIMATED > 60; GLUCOSE 99 MG/DL (70-105); POTASSIUM 3.8 MMOL/L (3.6-5.0); SODIUM 140 MMOL/L (135-145); TOTAL PROTEIN 5.5 G/DL (6.4-8.2)
[2016-08-22] MEDS ORDERED: WARF1TAB6 PO (13:36)
[2016-08-26] MEDS ORDERED: SUCR1TAB36 PO (10:34)
[2016-08-26] MEDS ORDERED: PANT40TA2 PO (10:34)
== END 2016-10-22 | disposition home or self-care (01) ==
LOC: LAB 14:43
PROVIDERS: ATTEND Internal Medicine
DX: B19.20 Unspecified viral hepatitis C without hepatic coma (principal); K74.69 Other cirrhosis of liver
CPT/HCPCS: 36415; 80053; 85025; 85610

== ENCOUNTER 2016-08-22 05:36 | Outpatient (CLI) | payer OTHER ==
[~2016-08-22] VITALS: Ht 190.5 cm; Wt 106.7 kg
[2016-08-22] MEDS ORDERED: WARF1TAB6 PO (13:36)
== END 2016-08-22 13:41 ==
LOC: PREOP 05:36
PROVIDERS: ATTEND Surgery
DX: Z01.818 Encounter for other preprocedural examination (principal); Z12.11 Encounter for screening for malignant neoplasm of colon; R10.11 Right upper quadrant pain; K74.60 Unspecified cirrhosis of liver

== ENCOUNTER 2016-08-26 07:53 | Day surgery (SDC) | payer OTHER ==
[~2016-08-26] VITALS: Ht 190.5 cm; Wt 106.7 kg
[~2016-08-26 07:53] MED LIST changes: +WARF1TAB6 PO
[2016-08-26] MEDS ORDERED: NALOXONE 0.4 MG/ML 1 ML (NARCAN) VIAL IVP PRN (08:00)
[2016-08-26] MEDS ORDERED: NS IV 1000 ML 1,000 ML IV STA (08:00)
[2016-08-26] MEDS ORDERED: HURRICAINE EXT TUBE (BENZOCAINE) XX PRN (08:00)
[2016-08-26] MEDS ORDERED: FLUMAZENIL (ROMAZICON) 0.1 MG/ML 5 ML VIAL INJ PRN (08:00)
[2016-08-26 08:02] VITALS: BP 144/90
[2016-08-26] MEDS ORDERED: proPOfol 200 MG/20 ML (DIPRIVAN) VIAL IV ONE ×2 (09:17→10:07)
[2016-08-26] MEDS ORDERED: MIDAZOLAM 2 MG/2 ML (VERSED) VIAL ONE (09:17)
--- NOTE | 2016-08-26 09:18 | Progress Note-Pre Operative ---
Pre-Operative Progress Note H&P Reviewed The H&P was reviewed, patient examined and no changes noted. Date H&P Reviewed: Aug 26, 2016 Time H&P Reviewed: 09:18 Pre-Operative Diagnosis: epigastric abdominal pain, liver cirrhosis, screening colonoscopy LORY PITTS DO Aug 26, 2016 09:18
[2016-08-26] MEDS ORDERED: SUCR1TAB36 PO (10:34)
[2016-08-26] MEDS ORDERED: PANT40TA2 PO (10:34)
[2016-08-26 10:35] VITALS: BP 110/72
--- NOTE | 2016-08-26 10:35 | Discharge Inst-Simple/Standard ---
Discharge Inst-Standard Discharge Medications New, Converted or Re-Newed RX: RX on Chart Patient Instructions/Follow Up Plan of Care/Instructions/FU: Follow up with Dr. Cortés in 2-3 weeks Take medication as directed Will need repeat colonoscopy in 6 months. Stop Coumadin for 4 more days. Activity as Tolerated: Yes Discharge Diet: No Restrictions CATHY WHYTE APRN Aug 26, 2016 10:35
--- NOTE | 2016-08-26 10:37 | Progress Note-Post Operative ---
Post-Operative Progess Note Surgeon (s)/Chef De Froid (s) Surgeon LORY PITTS DO Chef De Froid: 0 Pre-Operative Diagnosis epigastric abdominal pain, liver cirrhosis, screening colonoscopy Post-Operative Diagnosis gastritis, duodenitis, colon polyps Post-Op Procedure Note Date of Procedure: Aug 26, 2016 Name of Procedure Performed: egd c biopsies, colonoscopy c hot bx polypectomy x 7 Description of the Procedure: see note Findings of the Procedure see note Anesthesia Type per mda Estimated blood loss (mL): none Specimen(s) collected/removed antrum, body of stomach, colon polyps LORY PITTS DO Aug 26, 2016 10:37 am
[2016-08-26 11:05] VITALS: BP 121/66
[2016-08-26 11:30] VITALS: BP 121/66
--- NOTE | 2016-08-27 13:42 | PROCEDURE REPORT ---
PROCEDURE PHYSICIAN: LORY PITTS DATE OF PROCEDURE: 08/26/2016 PREOPERATIVE DIAGNOSIS: Epigastric abdominal pain, liver cirrhosis, screening colonoscopy. POSTOPERATIVE DIAGNOSES: 1. Gastritis. 2. Duodenitis. 3. Colon polyps. PROCEDURE: 1. EGD with biopsies. 2. Colonoscopy with hot biopsy polypectomy x 7. SURGEON: Moo. ANESTHESIA: Per MDA. ESTIMATED BLOOD LOSS: None. COMPLICATIONS: None. INDICATIONS: The patient is a 50-year-old male with liver cirrhosis, and epigastric abdominal pain. It was asked that he have evaluation of EGD and colonoscopy. He understands the risks and benefits and wished to proceed with procedure. Consent was signed on the chart. PROCEDURE: The patient was taken endoscopy suite, placed left lateral recumbent position. Timeout was performed. The scope was inserted in the mouth, down the esophagus, stomach and into the duodenum without difficulty. Within the first and the second portion had no polyps, masses, ulcerations. The first portion had a little bit of inflammatory changes. The scope was slowly retracted back to the stomach where it was further insufflated noting significant erythema and the appearance was slightly edematous tissue. Biopsy of the antrum were obtained. A biopsy of the antrum was obtained as well. The scope was retroflexed noting no other pathology. The scope was returned to its normal position slowly withdrawn into the distal esophagus. There were no erythematous changes. No polyps, masses, ulcerations. There appears to be possibly a small esophageal varices but not of very much significance. The scope was continued be slowly retracted until completely removed noting no other pathology. COLONOSCOPY: Digital rectal exam was performed. There were no palpable polyps, masses or ulcerations. Good rectal tone. The scope was inserted in the rectum and advanced all of the way to the cecum with minimal difficulty. Prep was adequate with irrigation and suction. Within the cecum there was a flat polyp, which hot biopsy polypectomy was performed; a total of a little bit larger than a centimeter. The scope was then slowly retracted back and there was a second polyp within the cecum and hot biopsy polypectomy was performed. At the hepatic flexure, there was another polyp, which hot biopsy polypectomy was performed. Within the transverse colon there was another polyp, which hot biopsy polypectomy was performed. At the splenic flexure there were 3 small polyps which hot biopsy polypectomy was performed. The scope was continued to be slowly retracted back. There were no polyps, masses ulcers in the descending colon or sigmoid colon. He did have a little bit of diverticulosis present. The scope was then continuously retracted back into the rectum where it was also retroflexed noting no other pathology. The scope was returned to its normal position slowly withdrawn until completely removed. RECOMMENDATIONS: Due to number of polyps and due to the flat polyp in the cecum would recommend repeat colonoscopy in 6 months. With the gastritis and duodenitis we will start him on Carafate and Protonix 40 mg daily. The patient to follow-up in approximately 3 weeks to discuss pathology results. Job ID: [id number] Dictated Date: 08/26/2016 10:37:58 Director Of Parks And Recreation Date: 08/27/2016 13:13:32 / gael
== END 2016-08-26 11:30 | disposition home or self-care (01) ==
LOC: ENDO 07:53
PROVIDERS: ATTEND Surgery
DX: Z12.11 Encounter for screening for malignant neoplasm of colon (principal); K63.5 Polyp of colon; K29.70 Gastritis, unspecified, without bleeding; K29.80 Duodenitis without bleeding; K74.60 Unspecified cirrhosis of liver
CPT/HCPCS: 88305

== ENCOUNTER 2016-10-17 13:06 | Outpatient (RCR) | payer OTHER ==
[2016-09-17 13:57] LABS: INR 2.3 (0.8-1.4); PROTHROMBIN TIME PATIENT 25.3 SEC (12.2-14.7)
[~2016-10-17 13:06] MED LIST changes: +PANT40TA2 PO; +SUCR1TAB36 PO
[2016-10-17 13:22] LABS: INR 2.2 (0.8-1.4); PROTHROMBIN TIME PATIENT 23.9 SEC (12.2-14.7)
== END 2016-12-16 | disposition home or self-care (01) ==
LOC: LAB 13:06
PROVIDERS: ATTEND Internal Medicine
DX: K74.69 Other cirrhosis of liver (principal)
CPT/HCPCS: 36415; 85610

== ENCOUNTER → 2016-12-10 | Outpatient (CLI) | payer OTHER ==
[2016-12-10 11:13] LABS: BASOPHILS % (AUTO) 1 % (0-10); EOSINOPHILS # (AUTO) 0.2 10^3/uL (0.0-0.3); EOSINOPHILS % (AUTO) 4 % (0-10); LYMPHOCYTES # (AUTO) 1.8 X 10^3 (1.0-4.0); LYMPHOCYTES % (AUTO) 44 % (12-44); MEAN CORPUSCULAR HEMOGLOBIN 33 PG (25-34); MEAN CORPUSCULAR HGB CONC 35 G/DL (32-36); MEAN CORPUSCULAR VOLUME 94 FL (80-99); MONOCYTES # (AUTO) 0.5 X 10^3 (0.0-1.0); MONOCYTES % (AUTO) 13 % (0-12); NEUTROPHILS # (AUTO) 1.5 X 10^3 (1.8-7.8); NEUTROPHILS % (AUTO) 37 % (42-75); PLATELET COUNT 119 10^3/uL (130-400); RED BLOOD COUNT 4.13 10^6/uL (4.35-5.85); RED CELL DISTRIBUTION WIDTH 14.1 % (10.0-14.5); WHITE BLOOD COUNT 4.1 10^3/uL (4.3-11.0)
[2016-12-10 11:26] LABS: INR 2.5 (0.8-1.4); PROTHROMBIN TIME PATIENT 26.6 SEC (12.2-14.7)
[2016-12-10 11:30] LABS: ALANINE AMINOTRANSFERASE 23 U/L (0-55); ALBUMIN 3.1 GM/DL (3.2-4.5); ANION GAP 8 MMOL/L (5-14); ASPARTATE AMINO TRANSFERASE 33 U/L (5-34); BILIRUBIN,TOTAL 2.5 MG/DL (0.1-1.0); BLOOD UREA NITROGEN 6 MG/DL (7-18); BUN/CREATININE RATIO 8; CARBON DIOXIDE 18 MMOL/L (21-32); CHLORIDE 111 MMOL/L (98-107); CREATININE SERUM 0.74 MG/DL (0.60-1.30); GFR ESTIMATED > 60; GLUCOSE 171 MG/DL (70-105); POTASSIUM 3.6 MMOL/L (3.6-5.0); SODIUM 137 MMOL/L (135-145); TOTAL PROTEIN 5.7 GM/DL (6.4-8.2)
== END ==
LOC: LAB 10:44
PROVIDERS: ATTEND Internal Medicine
DX: K74.69 Other cirrhosis of liver (principal)
CPT/HCPCS: 36415; 80053; 82105; 85025; 85610

== ENCOUNTER → 2017-04-28 | Outpatient (CLI) | payer MEDICARE ==
--- NOTE | 2017-04-28 14:26 | Diagnostic Imaging Report ---
EXAMINATION: Three views of the lumbar spine. INDICATION: Low back pain. FINDINGS: The lumbar spine alignment is satisfactory. The vertebral body heights are preserved. Disc heights are also preserved. Posterior osteophytes at L5-S1 are seen. There is minimal anterior osteophytes around the thoracolumbar junction. The SI joints appear symmetric with minimal degenerative sclerosis. IMPRESSION: Mild degenerative changes. Dictated by: Dictated on workstation # [id number]
== END ==
LOC: RAD 11:07
DX: M47.818 Spondylosis without myelopathy or radiculopathy, sacral and sacrococcygeal region (principal); M54.5 Low back pain
CPT/HCPCS: 72100

== ENCOUNTER → 2017-06-11 | Outpatient (CLI) | payer MEDICARE ==
--- NOTE | 2017-06-11 11:39 | Diagnostic Imaging Report ---
INDICATION: Cirrhosis. PROCEDURE: US Doppler abdomen complete. TECHNIQUE: Spectral and color flow Doppler imaging was performed of the abdomen. The liver is normal in size 15.4 cm. There is diffuse hepatic parenchymal heterogeneity. No discrete mass is identified. The hepatic veins are patent and demonstrate pulsatility. Main portal vein remains occluded. A hepatic artery is patent. The splenic vein appears patent. The gallbladder is without stones or sludge. No significant wall thickening is seen. No biliary duct dilatation is identified. Extrahepatic bile duct is somewhat obscured by bowel gas. In addition, the pancreas is obscured. The right kidney is unremarkable. There is no ascites. IMPRESSION: Stable liver Doppler when compared with exam from 06/24/2016. There continues to be portal vein thrombosis. No hepatic mass is detected. Dictated by: Dictated on workstation # [id number]
== END ==
LOC: RAD 08:55
PROVIDERS: ATTEND Internal Medicine
DX: K74.69 Other cirrhosis of liver (principal); I81 Portal vein thrombosis
CPT/HCPCS: 93975

== ENCOUNTER 2017-08-05 14:20 | Outpatient (CLI) | payer MEDICARE ==
[~2017-08-05] VITALS: Ht 190.5 cm; Wt 106.7 kg
[~2017-08-05 14:20] MED LIST changes: -WARF1TAB6 PO; +WARF1TAB82 PO; +WARF2TAB PO
== END 2017-08-05 14:28 ==
LOC: PREOP 14:20
PROVIDERS: ATTEND Surgery
DX: Z01.818 Encounter for other preprocedural examination (principal); Z86.010 Personal history of colon polyps; K21.9 Gastro-esophageal reflux disease without esophagitis; I85.00 Esophageal varices without bleeding

== ENCOUNTER → 2017-11-09 | Outpatient (CLI) | payer MEDICARE, OTHER ==
--- NOTE | 2017-11-09 09:21 | Diagnostic Imaging Report ---
PROCEDURE: US abdomen complete. TECHNIQUE: Multiple real-time grayscale images were obtained over the abdomen in various projections. INDICATION: Cirrhosis. COMPARISON: Correlation is made with prior exam from 06/11/2017. FINDINGS: The liver is 17 cm in size. Diffuse parenchymal heterogeneity is again noted. No discrete liver mass is identified. Portal vein remains thrombosed, similar to prior exam. Gallbladder is without stones or sludge. No wall thickening or biliary ductal dilatation is seen. The pancreas is obscured. The spleen is enlarged at 15.8 cm. Proximal aorta is obscured. Mid and distal aorta are normal caliber. The IVC is unremarkable. Right and left kidneys are unremarkable apart from 19 mm cyst involving the right kidney. No calculi or hydronephrosis is seen. There is no ascites. IMPRESSION: 1. Liver parenchymal heterogeneity without evidence of a discrete mass. Portal vein thrombosis persists. 2. Splenomegaly. 3. Right renal cyst. 4. No other significant abnormality is seen. Dictated by: Dictated on workstation # [id number]
== END ==
LOC: RAD 07:43
PROVIDERS: ATTEND Internal Medicine
DX: I81 Portal vein thrombosis (principal); N28.1 Cyst of kidney, acquired; K74.69 Other cirrhosis of liver; R16.1 Splenomegaly, not elsewhere classified
CPT/HCPCS: 76700

== ENCOUNTER 2018-02-24 14:46 | Outpatient (RCR) | payer MEDICARE, OTHER ==
[2018-02-24 15:10] LABS: INR 1.6 (0.8-1.4); PROTHROMBIN TIME PATIENT 19.3 SEC (12.2-14.7)
== END 2018-05-25 | disposition home or self-care (01) ==
LOC: LAB 14:46
PROVIDERS: ATTEND Internal Medicine
DX: Z51.81 Encounter for therapeutic drug level monitoring (principal); Z79.01 Long term (current) use of anticoagulants
CPT/HCPCS: 36415; 85610

== ENCOUNTER 2018-07-04 16:51 | Emergency (ER) | payer MEDICARE ==
[~2018-07-04] VITALS: Ht 182.9 cm; Wt 113.4 kg
--- OUTSIDE RECORDS SUMMARY | 2018-07-04 16:55 | XMS REPORT | Encounter Summary ---
Author Author [facility] Organization [facility] Address Unknown Phone Unavailable Care Team Providers Care Agency Manager Name Role Phone Luis Fierro MD Unavailable Zahra Tony Unavailable Unavailable Kristin Alfaro LPN Unavailable Unavailable Leeanne Bennett Unavailable Unavailable Lovely Sanders Unavailable Unavailable Damari Nguyen Unavailable Unavailable Madelyn Gale Unavailable Unavailable Lula Cintron Unavailable Unavailable Kwame Cuenca Unavailable Unavailable Liz HobsonD Unavailable Unavailable Brendan Maldonado MD PCP Reason for Visit * Reason Comments Appointment Question Encounter Details Care Team Description Date Type Department Madelyn Spear MD [address] [place] [address] Appointment Question 06/07/2018 Telephone [facility] 1st FLOOR [address] [place] [address] Social History Date Tobacco Use Types Packs/Day Years Used Quit: 01/13/2017 Former Smoker Smokeless Tobacco: Never Used Comments: 1 pack every 3 day's Alcohol Use Drinks/Week oz/Week Comments Yes occationally Sex Assigned at Date Recorded Not on file Industry Job Start Date Occupation Not on file Not on file Not on file Travel End Travel History Travel Start No recent travel history available. as of this encounter Functional Status Date of Assessment Functional Status Response 06/15/2017 Does the patient have a hearing impairment: No 06/15/2017 Does the patient have a visual impairment: Yes 06/15/2017 Does the patient have impaired ambulation: No 06/15/2017 Does the patient have an activity of daily living No (ADL) impairment: 06/15/2017 Does the patient have an instrumental activity of No daily living (IADL) impairment: Date of Assessment Cognitive Status Response 06/15/2017 Does the patient have a cognitive impairment: No as of this encounter Plan of Treatment Care Team Description Date Type Specialty Niko Agarwal MD [address] [place] [address] Other cirrhosis of liver (HCC) 08/12/2018 Hospital Encounter Niko Agarwal MD [address] [place] [address] ESOPHAGOGASTRODUODENOSCOPY WITH SPECIMEN COLLECTION BY BRUSHING/ WASHING 08/12/2018 Surgery as of this encounter Visit Diagnoses Not on filein this encounter
--- OUTSIDE RECORDS SUMMARY | 2018-07-04 16:55 | XMS REPORT | Encounter Summary ---
Author Author [facility] Organization [facility] Address Unknown Phone Unavailable Care Team Providers Care Resolute Professional Name Role Phone Luis Fierro MD Unavailable Zahra Tony Unavailable Unavailable Kristin Alfaro LPN Unavailable Unavailable Leeanne Bennett Unavailable Unavailable Lovely Sanders Unavailable Unavailable Damari Nguyen Unavailable Unavailable Madelyn Gale Unavailable Unavailable Lula Cintron Unavailable Unavailable Kwame Cuenca Unavailable Unavailable Liz HobsonD Unavailable Unavailable Brendan Maldonado MD PCP Reason for Visit * Reason Comments Other Encounter Details Care Team Description Date Type Department Luis Fierro MD [address] [place] [address] Other 06/28/2018 Telephone [facility] [address] [place] [address] Social History Date Tobacco Use Types Packs/Day [...] cognitive impairment: No as of this encounter Miscellaneous Notes * Telephone Encounter - Bailey Ennis - 06/28/2018 11:33 AM COREMAKER EXPERIMENTAL Darwin called to speak with Lamar about coordinating his various appointments 08/12/18. EGD pre-OP prior to Dr. Fierro 10:40. EGD at 11:27; He said Lamar is also looking to schedule another appt for him. Please call. MAKER EXPERIMENTAL in this encounter Plan of Treatment Care Team Description Date Type Specialty Niko Agarwal MD [address] [place] [address] [phone] Other cirrhosis of liver (HCC) 08/12/2018 Hospital Encounter Niko Agarwal MD [address] [place] [address] [phone] ESOPHAGOGASTRODUODENOSCOPY WITH SPECIMEN COLLECTION BY BRUSHING/ WASHING 08/12/2018 Surgery as of this encounter Visit Diagnoses Not on filein this encounter
--- OUTSIDE RECORDS SUMMARY | 2018-07-04 16:55 | XMS REPORT | Clinical Summary ---
Author Author [facility] Organization [facility] Address Unknown Phone Unavailable Care Team Providers Care Mainframe Consultant Name Role Phone Luis Fierro MD Unavailable Zahra Tony Unavailable Unavailable Kristin Alfaro LPN Unavailable Unavailable Leeanne Bennett Unavailable Unavailable Lovely Sanders Unavailable Unavailable Damari Nguyen Unavailable Unavailable Madelyn Gale Unavailable Unavailable Lula Cintron Unavailable Unavailable Kwame Cuenca Unavailable Unavailable Liz HobsonD Unavailable Unavailable Brendan Maldonado MD PCP Source Comments Some departments are not documenting in the electronic medical record. If you do not see the information that you expected, contact Release of Information in the Health Information Management department at [phone] for further assistance in locating additional records.[facility] Allergies No Known Allergies Medications End Date Status Medication Sig Dispensed Refills Start Date Active furosemide (LASIX) 40 mg Take 1 Tab by 90 Tab 3 tabletIndications: Edema, mouth daily. 6 unspecified type Active lisinopril (PRINIVIL; Take 20 mg by 0 ZESTRIL) 20 mg tablet mouth daily. Active warfarin (COUMADIN) 1 mg Take two 60 tablet 2 tablet tablets by 8 mouth daily. Active Problems Problem Noted Date Portal vein thrombosis 12/15/2016 Secondary esophageal varices without bleeding 12/15/2016 Alcohol use 12/15/2016 Overview: As of 12/15/16 last use reported around . Cirrhosis 09/23/2013 Edema 09/23/2013 Resolved Problems Problem Noted Date Resolved Date Hepatitis C 09/23/2013 12/15/2016 Alcoholic hepatitis 09/23/2013 06/15/2017 Hepatic encephalopathy 09/23/2013 12/15/2016 Encounters Care Team Description Date Type Specialty Luis Fierro MD Other 06/28/2018 Telephone Hepatology Luis Fierro MD Other cirrhosis of liver (HCC) (Primary Dx); PVT (portal vein thrombosis) 06/23/2018 Prep for Case Hepatology Luis Fierro MD Disability Form/paperwork 06/18/2018 Telephone Hepatology Madelyn Spear MD Appointment Question 06/07/2018 Telephone Transplant Surgery Luis Fierro MD Procedure 06/04/2018 Telephone Hepatology Ely Carpenter MA Patient Reminder Call 05/27/2018 Telephone Hepatology Luis Fierro MD Other (call to [place]) 04/09/2018 Telephone Hepatology Luis Fierro MD Other cirrhosis of liver (HCC) (Primary Dx); PVT (portal vein thrombosis) 04/08/2018 Prep for Case Hepatology from Last 3 Months Social History Date Tobacco Use Types Packs/Day Years Used Quit: 01/13/2017 Former Smoker Smokeless Tobacco: Never Used Tobacco Cessation: Ready to Quit: Yes Comments: 1 pack every 3 day's Alcohol Use Drinks/Week oz/Week Comments Yes occationally Sex Assigned at Date Recorded Not on file Industry Job Start Date Occupation Not on file Not on file Not on file Travel End Travel History Travel Start No recent travel history available. Last Filed Vital Signs Time Taken Vital Sign Reading 06/15/2017 10:30 AM PLANT HEALTH CARE TECHNICIAN Blood Pressure 154/83 06/15/2017 10:30 AM PLANT HEALTH CARE TECHNICIAN Pulse 68 06/15/2017 10:30 AM PLANT HEALTH CARE TECHNICIAN Temperature 36.8 C (98.3 F) 06/15/2017 10:30 AM PLANT HEALTH CARE TECHNICIAN Respiratory Rate 16 06/15/2017 10:30 AM PLANT HEALTH CARE TECHNICIAN Oxygen Saturation 98% - Inhaled Oxygen - Concentration 06/15/2017 10:30 AM PLANT HEALTH CARE TECHNICIAN Weight 108 kg (238 lb) 06/15/2017 10:30 AM PLANT HEALTH CARE TECHNICIAN Height 190.5 cm (6' 3") 06/15/2017 10:30 AM PLANT HEALTH CARE TECHNICIAN Body Mass Index 29.75 Plan of Treatment Care Team Description Date Type Specialty Niko Agarwal MD [address] [place] [address] [phone] Other cirrhosis of liver (HCC) 08/12/2018 Hospital Encounter Niko Agarwal MD [address] [facility] [place] [address] ESOPHAGOGASTRODUODENOSCOPY WITH SPECIMEN COLLECTION BY BRUSHING/ WASHING 08/12/2018 Surgery Health Maintenance Due Date Last Done Comments PHYSICAL (COMPREHENSIVE) 10/23/1971 EXAM HIV SCREENING 10/23/1979 DTAP/TDAP VACCINES (1 - 1982 Tdap) COLORECTAL CANCER 2014 SCREENING SHINGLES RECOMBINANT 2014 VACCINE (1 of 2) INFLUENZA VACCINE 12/09/2017 Results Not on filefrom Last 3 Months Insurance Payer Benefit Subscriber ID Type Phone Address Plan / Group COVENTRY MEDICARE COVENTRY xxxxxxxxxxx Medicare ADVANTRA MEDICARE PPO Advance Directives Patient has advance care planning documents on file. For more information, please contact: [facility] [address] [place] [address]
--- OUTSIDE RECORDS SUMMARY | 2018-07-04 16:55 | XMS REPORT | Encounter Summary ---
Author Author [facility] Organization [facility] Address Unknown Phone Unavailable Care Team Providers Care Shellfish Grower Name Role Phone Luis Fierro MD Unavailable Zahra Tony Unavailable Unavailable Kristin Alfaro LPN Unavailable Unavailable Leeanne Bennett Unavailable Unavailable Lovely Sanders Unavailable Unavailable Damari Nguyen Unavailable Unavailable Madelyn Gale Unavailable Unavailable Lula Cintron Unavailable Unavailable Kwame Cuenca Unavailable Unavailable Liz HobsonD Unavailable Unavailable Brendan Maldonado MD PCP Reason for Referral * Consult, Test & Treat (Routine) Referred By Contact Referred To Contact Status Reason Specialty Diagnoses / Procedures Luis Fierro MD [address] [place] [address] [facility] [address] [place] [address] New Request Specialty Services Neuropsychology Diagnoses Required Other cirrhosis of liver (HCC) Reason for Visit * Reason Comments Disability Form/paperwork Encounter Details Care Team Description Date Type Department Luis Fierro MD [address] [facility] [address] [place] [address] Disability Form/paperwork 06/18/2018 Telephone [facility] [address] [place] [address] Social History Date Tobacco Use [...] as of this encounter Miscellaneous Notes * Addendum Note - Lamar Silver RN - 06/25/2018 1:51 PM RESTAURANT HOSPITALITY MANAGER Addended by: LAMAR SILVER on: 06/25/2018 01:51 PM Modules accepted: Orders AURANT HOSPITALITY MANAGER * Telephone Encounter - Lamar Silver RN - 06/25/2018 1:43 PM RESTAURANT HOSPITALITY MANAGER Paperwork received and discussed with Dr. Fierro. Dr. Fierro call patient personally and advised for patient to have neuro-psych eval for subclinical HE before he would fill paperwork out. Order placed. Lamar Silver RN BSN AURANT HOSPITALITY MANAGER * Telephone Encounter - Lamar Silver RN - 06/18/2018 3:59 PM RESTAURANT HOSPITALITY MANAGER Call received from patient stating he faxed forms for Dr. Fierro to review and possibly fill out regarding disability. Will call once discussed with Dr. Fierro. Lamar Silver RN BSN AURANT HOSPITALITY MANAGER * Telephone Encounter - Victorina Torres - 06/18/2018 2:23 PM RESTAURANT HOSPITALITY MANAGER Please call pt back regarding form that he is faxing to you. AURANT HOSPITALITY MANAGER in this encounter Plan of Treatment Care Team Description Date Type Specialty Niko Agarwal MD [address] [place] [address] [phone] Other cirrhosis of liver (HCC) 08/12/2018 Hospital Encounter Niko Agarwal MD [address] [place] [address] [phone] ESOPHAGOGASTRODUODENOSCOPY WITH SPECIMEN COLLECTION BY BRUSHING/ WASHING 08/12/2018 Surgery Order Schedule Name Priority Associated Diagnoses Ordered: 06/25/2018 AMB REFERRAL TO NEUROPSYCHOLOGY Routine Other cirrhosis of liver (HCC) as of this encounter Visit Diagnoses Diagnosis Other cirrhosis of liver (HCC) - Primary in this encounter
--- OUTSIDE RECORDS SUMMARY | 2018-07-04 16:55 | XMS REPORT | Encounter Summary ---
Author Author [facility] Organization [facility] Address Unknown Phone Unavailable Care Team Providers Care Plastic Tool Maker Name Role Phone Luis Fierro MD Unavailable Zahra Tony Unavailable Unavailable Kristin Alfaro LPN Unavailable Unavailable Leeanne Bennett Unavailable Unavailable Lovely Sanders Unavailable Unavailable Damari Nguyen Unavailable Unavailable Madelyn Gale Unavailable Unavailable Lula Cintron Unavailable Unavailable Kwame Cuenca Unavailable Unavailable Liz HobsonD Unavailable Unavailable Brendan Maldonado MD PCP Encounter Details Care Team Description Date Type Department Luis Fierro MD [address] [place] [address] Other cirrhosis of liver (HCC) (Primary Dx); PVT (portal vein thrombosis) 06/23/2018 Prep for [facility] [address] [place] [address] Social History Date Tobacco Use [...] Description Date Type Specialty Niko Agarwal MD [address] [place] [address] [phone] Other cirrhosis of liver (HCC) 08/12/2018 Hospital Encounter Niko Agarwal MD [address] [place] [address] [phone] ESOPHAGOGASTRODUODENOSCOPY WITH SPECIMEN COLLECTION BY BRUSHING/ WASHING 08/12/2018 Surgery as of this encounter Visit Diagnoses Diagnosis Other cirrhosis of liver (HCC) - Primary PVT (portal vein thrombosis) Portal vein thrombosis in this encounter
--- OUTSIDE RECORDS SUMMARY | 2018-07-04 16:56 | XMS REPORT | Encounter Summary ---
Author Author [facility] Organization [facility] Address Unknown Phone Unavailable Care Team Providers Care Director Work Name Role Phone Luis Fierro MD Unavailable Zahra Tony Unavailable Unavailable Kristin Alfaro LPN Unavailable Unavailable Leeanne Bennett Unavailable Unavailable Lovely Sanders Unavailable Unavailable Damari Nguyen Unavailable Unavailable Madelyn Gale Unavailable Unavailable Lula Cintron Unavailable Unavailable Kwame Cuenca Unavailable Unavailable Liz HobsonD Unavailable Unavailable Brendan Maldonado MD PCP Reason for Visit * Reason Comments Procedure Encounter Details Care Team Description Date Type Department Luis Fierro MD [address] [place] [address] Procedure 06/04/2018 Telephone [facility] [address] [place] [address] Social History Date Tobacco Use [...] encounter Miscellaneous Notes * Telephone Encounter - Lamar Thompson RN - 06/07/2018 10:58 AM COREMAKER HELPER Call returned to patient. Patient requests to have EGD done same day as visit. Will placed order for EGD in June. Lamar Thompson WORM PACKER MAKER HELPER * Telephone Encounter - Sharri Carver - 06/04/2018 2:20 PM COREMAKER HELPER Lamar I rescheduled pt to see WD on 08/12 @ 10:40 pt would like his EGD resched here at the hospital but would like for you to send an order for his sono to via [facility]. MAKER HELPER in this encounter Plan of Treatment Care Team Description Date Type Specialty Niko Agarwal MD [address] [place] [address] [phone] Other cirrhosis of liver (HCC) 08/12/2018 Hospital Encounter Niko Agarwal MD [address] [place] [address] [phone] ESOPHAGOGASTRODUODENOSCOPY WITH SPECIMEN COLLECTION BY BRUSHING/ WASHING 08/12/2018 Surgery as of this encounter Visit Diagnoses Not on filein this encounter
--- OUTSIDE RECORDS SUMMARY | 2018-07-04 16:56 | XMS REPORT | Encounter Summary ---
Author Author [facility] Organization [facility] Address Unknown Phone Unavailable Care Team Providers Care Middleware Systems Architect Name Role Phone Luis Fierro MD Unavailable Zahra Tony Unavailable Unavailable Kristin Alfaro LPN Unavailable Unavailable Leeanne Bennett Unavailable Unavailable Lovely Sanders Unavailable Unavailable Damari Nguyen Unavailable Unavailable Madelyn Gale Unavailable Unavailable Lula Cintron Unavailable Unavailable Kwame Cuenca Unavailable Unavailable Liz HobsonD Unavailable Unavailable Brendan Maldonado MD PCP Reason for Visit * Reason Comments Other call to [place] Encounter Details Care Team Description Date Type Department Luis Fierro MD [address] [place] [address] Other (call to [place]) 04/09/2018 Telephone [facility] [address] [place] [address] Social History Date Tobacco Use [...] Telephone Encounter - Lamar Thompson RN - 04/12/2018 3:54 PM SCHOOL TREASURER Call returned to patient. Advised patient to hold coumadin 5 days prior to procedure, patient v/u. Lamar Thompson RN BSN OL TREASURER * Telephone Encounter - Catherine Sosa - 04/09/2018 12:28 PM SCHOOL TREASURER Please return a call to Darwin regarding upcoming procedure and coumadin. OL TREASURER in this encounter Plan of Treatment Care Team Description Date Type Specialty Niko Agarwal MD [address] [place], [place] [address] Other cirrhosis of liver (HCC) 08/12/2018 Hospital Encounter Niko Agarwal MD [address] [place] [address] [phone] ESOPHAGOGASTRODUODENOSCOPY WITH SPECIMEN COLLECTION BY BRUSHING/ WASHING 08/12/2018 Surgery as of this encounter Visit Diagnoses Not on filein this encounter
--- OUTSIDE RECORDS SUMMARY | 2018-07-04 16:56 | XMS REPORT | Encounter Summary ---
Author Author [facility] Organization [facility] Address Unknown Phone Unavailable Care Team Providers Care Hvac Instructor Name Role Phone Luis Fierro MD Unavailable Zahra Tony Unavailable Unavailable Kristin Alfaro LPN Unavailable Unavailable Leeanne Bennett Unavailable Unavailable Lovely Sanders Unavailable Unavailable Damari Nguyen Unavailable Unavailable Madelyn Gale Unavailable Unavailable Lula Cintron Unavailable Unavailable Kwame Cuenca Unavailable Unavailable Liz HobsonD Unavailable Unavailable Brendan Maldonado MD PCP Reason for Visit * Reason Comments Patient Reminder Call Encounter Details Care Team Description Date Type Department Ely Carpenter MA Patient Reminder Call 05/27/2018 Telephone [facility] [address] [place] [address] Social History Date Tobacco Use [...] encounter Miscellaneous Notes * Telephone Encounter - Ely Carpenter MA - 05/27/2018 2:59 PM STUDENT DEVELOPMENT COORDINATOR Called patient and confirmed appointment with Dr. Fierro on 05/28/18. ENT DEVELOPMENT COORDINATOR in this encounter Plan of Treatment Care Team Description Date Type Specialty Niko Agarwal MD [address] [place], [place] [id number] Other cirrhosis of liver (HCC) 08/12/2018 Hospital Encounter Niko Agarwal MD [address] [place] [address] [phone] ESOPHAGOGASTRODUODENOSCOPY WITH SPECIMEN COLLECTION BY BRUSHING/ WASHING 08/12/2018 Surgery as of this encounter Visit Diagnoses Not on filein this encounter
--- OUTSIDE RECORDS SUMMARY | 2018-07-04 16:56 | XMS REPORT | Encounter Summary ---
Author Author [facility] Organization [facility] Address Unknown Phone Unavailable Care Team Providers Care Body Masker Name Role Phone uLis Fierro MD Unavailable Zahra Tony Unavailable Unavailable Kristin Alfaro LPN Unavailable Unavailable Leeanne Bennett Unavailable Unavailable Lovely Sanders Unavailable Unavailable Damari Nguyen Unavailable Unavailable Madelyn Gale Unavailable Unavailable Lula Cintron Unavailable Unavailable Kwame Cuenca Unavailable Unavailable Liz HobsonD Unavailable Unavailable Brendan Maldonado MD PCP Encounter Details Care Team Description Date Type Department Luis Fierro MD [address] [place] [address] Other cirrhosis of liver (HCC) (Primary Dx); PVT (portal vein thrombosis) 04/08/2018 Prep for Case [facility] [address] [place] [address] Social History Date Tobacco Use [...] Description Date Type Specialty Niko Agarwal MD [address] [place] [address] [phone] Other cirrhosis of liver (HCC) 08/12/2018 Hospital Encounter Niko Agarwal MD [address] [place] [address] [phone] ESOPHAGOGASTRODUODENOSCOPY WITH SPECIMEN COLLECTION BY BRUSHING/ WASHING 08/12/2018 Surgery as of this encounter Visit Diagnoses Diagnosis Other cirrhosis of liver (HCC) - Primary PVT (portal vein thrombosis) Portal vein thrombosis in this encounter
[2018-07-04] MEDS ORDERED: RT-ALBUTEROL/IPRATROPIUM 3 ML (DUONEB) VIAL ONE (17:00)
[2018-07-04] MEDS ORDERED: RT-ALBUTEROL SULF 2.5 MG/3 ML PRE-MIX VIAL ONE (17:08)
[2018-07-04] MEDS ORDERED: NS IV 1000 ML 1,000 ML IV ONE (17:13)
[2018-07-04] MEDS ORDERED: RT-ALBUTEROL/IPRATROPIUM 3 ML (DUONEB) VIAL INH ONE ×2 (17:15)
[2018-07-04] MEDS ORDERED: ONDANSETRON 4 MG/2 ML (SDV) Z0FRAN IVP ONE (17:15)
[2018-07-04 17:17] LABS: BASOPHILS % (AUTO) 1 % (0-10); EOSINOPHILS # (AUTO) 0.1 10^3/uL (0.0-0.3); EOSINOPHILS % (AUTO) 1 % (0-10); HEMATOCRIT 41 % (40-54); HEMOGLOBIN 14.7 G/DL (13.3-17.7); LYMPHOCYTES % (AUTO) 17 % (12-44); MEAN CORPUSCULAR HEMOGLOBIN 33 PG (25-34); MEAN CORPUSCULAR HGB CONC 36 G/DL (32-36); MEAN CORPUSCULAR VOLUME 92 FL (80-99); MEAN PLATELET VOLUME 10.9 FL (7.4-10.4); MONOCYTES # (AUTO) 0.5 X 10^3 (0.0-1.0); MONOCYTES % (AUTO) 9 % (0-12); NEUTROPHILS # (AUTO) 4.4 X 10^3 (1.8-7.8); NEUTROPHILS % (AUTO) 73 % (42-75); PLATELET COUNT 120 10^3/uL (130-400); RED CELL DISTRIBUTION WIDTH 13.4 % (10.0-14.5); WHITE BLOOD COUNT 6.1 10^3/uL (4.3-11.0)
[2018-07-04 17:26] LABS: INR 1.6 (0.8-1.4); PROTHROMBIN TIME PATIENT 19.5 SEC (12.2-14.7)
[2018-07-04 17:35] LABS: ALANINE AMINOTRANSFERASE 21 U/L (0-55); ALBUMIN 3.6 GM/DL (3.2-4.5); ALKALINE PHOSPHATASE 99 U/L (40-136); BILIRUBIN,TOTAL 3.6 MG/DL (0.1-1.0); BUN/CREATININE RATIO 10; CALCIUM 8.9 MG/DL (8.5-10.1); CARBON DIOXIDE 21 MMOL/L (21-32); CHLORIDE 106 MMOL/L (98-107); CREATININE SERUM 0.77 MG/DL (0.60-1.30); GFR ESTIMATED > 60; GLUCOSE 110 MG/DL (70-105); POTASSIUM 3.7 MMOL/L (3.6-5.0); SODIUM 139 MMOL/L (135-145); TOTAL PROTEIN 6.2 GM/DL (6.4-8.2)
--- NOTE | 2018-07-04 17:51 | Diagnostic Imaging Report ---
INDICATION: Cough and congestion. COMPARISON: 09/13/2013. EXAMINATION: Single frontal radiographic view of the chest was obtained. FINDINGS: Normal heart size and pulmonary vascularity. The lungs are well aerated and clear. No large pleural effusion or pneumothorax is seen. The visualized osseous structures show no acute abnormalities. IMPRESSION: No acute cardiopulmonary process. Dictated by: Dictated on workstation # [id number]
[2018-07-04] MEDS ORDERED: RX-OSELTAMIVIR 75 MG (TAMIFLU) BOX OF 10 PO ONE (18:26)
[2018-07-04] MEDS ORDERED: RX-OSELTAMIVIR 75 MG (TAMIFLU) BOX OF 10 PO STA (18:36)
[2018-07-04] MEDS ORDERED: RX-ALBUTEROL INHALER (PROAIR) 8 GM IH STA (18:36)
[2018-07-04] MEDS ORDERED: RX-ONDANSETRON 4 MG ODT (ZOFRAN) PPK #4 SL STA (18:36)
--- NOTE | 2018-07-04 18:41 | ED Respiratory ---
General Chief Complaint: Respiratory Problems Stated Complaint: N/V/D,SOB,CONGESTION Nursing Triage Note: pt presens to ed with complaints of soa, cough, malaise, chills, and body aches x 2 days. Source: patient History of Present Illness Date Seen by Provider: Jul 04, 2018 Time Seen by Provider: 17:04 Initial Comments This 52-year-old man presents to the emergency room with difficulty breathing, wheezing, cough, headache, sore throat, myalgia, nausea, vomiting and chills. Symptoms hit him fairly suddenly last night. Other household members have been recently sick as well. Patient did not receive an influenza vaccine this year. He is a smoker. Patient takes warfarin for a portal vein thrombosis. He has not taken his dose the last 2 days because he's been sick. Oxygen saturation was around 90 percent on room air during initial assessment. Allergies and Home Medications Allergies Coded Allergies: No Known Drug Allergies (Unverified , 08/05/17) Home Medications Pantoprazole Sodium 40 Mg Tablet.dr, 40 MG PO DAILY Prescribed by: LORY PITTS on 08/11/17 1008 Warfarin Sodium 2 Mg Tablet, 2 MG PO DAILY, (Reported) Patient Home Medication List Home Medication List Reviewed: Yes Review of Systems Review of Systems Constitutional: see HPI EENTM: see HPI Respiratory: see HPI Cardiovascular: no symptoms reported Gastrointestinal: see HPI Genitourinary: no symptoms reported Musculoskeletal: see HPI Skin: no symptoms reported Psychiatric/Neurological: See HPI Hematologic/Lymphatic: No Symptoms Reported Immunological/Allergic: no symptoms reported Past Ywkjqih-Zthiyw-Xkxbbr Hx Past Med/Social Hx: Reviewed and Corrections made Patient Social History Alcohol Use: Denies Use Number of Drinks Today: AA Alcohol Beverage of Choice: Beer Recreational Drug Use: Yes Drug of Choice: marijuana Smoking Status: Current Everyday Smoker Type Used: Cigarettes Recent Foreign Travel: No Contact w/Someone Who Travel: No Recent Infectious Disease Expo: No Recent Hopitalizations: No Physical Abuse: No Sexual Abuse: No Mistreated: No Fear: No Seasonal Allergies Seasonal Allergies: No Past Medical History Surgeries: Yes (MOLE REMOVAL HAND, stent in liver) Tonsillectomy Respiratory: Yes COPD, Emphysema Cardiac: Yes Hypertension Neurological: Yes (MILD HEADACHES) Reproductive Disorders: No Sexually Transmitted Disease: No HIV/AIDS: No Genitourinary: Yes Kidney Stones Gastrointestinal: Yes (BLOCKAGE TO LIVER, HEP C, portal vein thrombosis) Gastroesophageal Reflux, Liver Disease/Jaundice, Hepatitis (Treated), Cirrhosis Musculoskeletal: Yes Arthritis, Chronic Back Pain Endocrine: No Loss of Vision: Bilateral Hearing Impairment: Denies Cancer: No Psychosocial: No Sleep Difficulties Integumentary: No Blood Disorders: No Adverse Reaction/Blood Tranf: No (HAS HAD BLOOD WITH NO REACTION) Family Medical History Cancer 19 FATHER (LUNG CA) G8 BROTHER (59 YEAR OLD PANCREATIC CANCER) Family history: Diabetes mellitus 19 FATHER 19 MOTHER No Pertinent Family Hx Physical Exam Vital Signs - First Documented 07/04/18 07/04/18 17:11 17:12 Temp 96.7 Pulse 89 Resp 30 B/P (MAP) 148/85 (106) Pulse Ox 95 O2 Delivery Nasal Cannula O2 Flow Rate 2.00 Capillary Refill : Less Than 3 Seconds Height: 6'3.00" Weight: 250lbs. 3.0oz. 113.407123vs; 29.4 BMI Method:Estimated General Appearance: WD/WN, mild distress HEENT: PERRL/EOMI, normal ENT inspection, TMs normal, pharyngeal erythema Neck: normal inspection Respiratory: respiratory distress (Mild), wheezing Cardiovascular: no edema, no murmur, tachycardia Gastrointestinal: normal bowel sounds, non tender, soft Extremities: normal inspection, no pedal edema Neurologic/Psychiatric: weld fitter II-XII nml as tested, no motor/sensory deficits, alert, normal mood/affect, oriented x 3 Skin: normal color, warm/dry Progress/Results/Core Measures Suspected Sepsis Recent Fever Within 48 Hours: No Infection Criteria Present: Suspected New Infection New/Unexplained Altered Menta: No Sepsis Screen: Possible Sepsis Risk SIRS Temperature:96.7 Pulse: 89 Respiratory Rate: 30 Laboratory Tests 07/04/18 17:05: White Blood Count 6.1 Blood Pressure 148 /85 Mean: 106 Laboratory Tests 07/04/18 17:05: Creatinine 0.77, INR Comment 1.6H, Platelet Count 120L, Total Bilirubin 3.6H Results/Orders Lab Results Laboratory Tests Test 07/04/18 17:05 Range/Units White Blood Count 6.1 4.3-11.0 10^3/uL Red Blood Count 4.48 4.35-5.85 10^6/uL Hemoglobin 14.7 13.3-17.7 G/DL Hematocrit 41 40-54 % Mean Corpuscular Volume 92 80-99 FL Mean Corpuscular Hemoglobin 33 25-34 PG Mean Corpuscular Hemoglobin Concent 36 32-36 G/DL Red Cell Distribution Width 13.4 10.0-14.5 % Platelet Count 120 L 130-400 10^3/uL Mean Platelet Volume 10.9 H 7.4-10.4 FL Neutrophils (%) (Auto) 73 42-75 % Lymphocytes (%) (Auto) 17 12-44 % Monocytes (%) (Auto) 9 0-12 % Eosinophils (%) (Auto) 1 0-10 % Basophils (%) (Auto) 1 0-10 % Neutrophils # (Auto) 4.4 1.8-7.8 X 10^3 Lymphocytes # (Auto) 1.0 1.0-4.0 X 10^3 Monocytes # (Auto) 0.5 0.0-1.0 X 10^3 Eosinophils # (Auto) 0.1 0.0-0.3 10^3/uL Basophils # (Auto) 0.0 0.0-0.1 10^3/uL Prothrombin Time 19.5 H 12.2-14.7 SEC INR Comment 1.6 H 0.8-1.4 Sodium Level 139 135-145 MMOL/L Potassium Level 3.7 3.6-5.0 MMOL/L Chloride Level 106 98-107 MMOL/L Carbon Dioxide Level 21 21-32 MMOL/L Anion Gap 12 5-14 MMOL/L Blood Urea Nitrogen 8 7-18 MG/DL Creatinine 0.77 0.60-1.30 MG/DL Estimat Glomerular Filtration Rate > 60 BUN/Creatinine Ratio 10 Glucose Level 110 H 70-105 MG/DL Calcium Level 8.9 8.5-10.1 MG/DL Corrected Calcium 9.2 8.5-10.1 MG/DL Total Bilirubin 3.6 H 0.1-1.0 MG/DL Aspartate Amino Transf (AST/SGOT) 34 5-34 U/L Alanine Aminotransferase (ALT/SGPT) 21 0-55 U/L Alkaline Phosphatase 99 40-136 U/L C-Reactive Protein High Sensitivity 0.38 0.00-0.50 MG/DL Total Protein 6.2 L 6.4-8.2 GM/DL Albumin 3.6 3.2-4.5 GM/DL Micro Results Microbiology 07/04/18 Influenza Types A,B Antigen (FARHAD) - Final, Complete My Orders Orders - EVELYNE WIN MD Albuterol/Ipra Inhalation Soln (Duoneb I (07/04/18 17:00) Influenza A And B Antigens (07/04/18 17:09) Saline Lock/Iv-Start (07/04/18 17:09) O2 (07/04/18 17:09) Monitor-Rhythm Ecg Trace Only (07/04/18 17:09) Albuterol/Ipra Inhalation Soln (Duoneb I (07/04/18 17:15) Svn Small Volume Nebulizer (07/04/18 17:09) Cbc With Automated Diff (07/04/18 17:09) Comprehensive Metabolic Panel (07/04/18 17:09) Hs C Reactive Protein (07/04/18 17:09) Protime With Inr (07/04/18 17:09) Albuterol/Ipra Inhalation Soln (Duoneb I (07/04/18 17:15) Svn Small Volume Nebulizer (07/04/18 17:09) Chest 1 View, Ap/Pa Only (07/04/18 17:12) Ns Iv 1000 Ml (Sodium Chloride 0.9%) (07/04/18 17:13) Ondansetron Injection (Zofran Injectio (07/04/18 17:15) Albuterol Pre-Mix Nebs (Rt) (Proventil (07/04/18 17:08) Rx-Oseltamivir Caps (Rx-Tamiflu Caps) (07/04/18 18:26) Rx-Oseltamivir Caps (Rx-Tamiflu Caps) (07/04/18 18:36) Rx-Ondansetron Po (Rx-Zofran Po) (07/04/18 18:36) Rx-Albuterol Inhaler (Rx-Proair) (07/04/18 18:36) Medications Given in ED Current Medications Medications Dose Ordered Sig/Lou Route Start Time Stop Time Status Last Admin Dose Admin Albuterol/ Ipratropium 3 ml ONCE ONCE INH 07/04/18 17:15 07/04/18 17:16 DC 07/04/18 17:15 3 ML Albuterol/ Ipratropium 3 ml STK-MED ONCE .ROUTE 07/04/18 17:00 07/04/18 17:07 DC 07/04/18 17:10 3 ML Ondansetron HCl 8 mg ONCE ONCE IVP 07/04/18 17:15 07/04/18 17:16 DC 07/04/18 17:42 8 MG Sodium Chloride 1,000 ml @ 0 mls/hr Q0M ONCE IV 07/04/18 17:13 07/04/18 17:14 DC 07/04/18 17:42 0 MLS/HR Vital Signs/I&O 07/04/18 07/04/18 07/04/18 07/04/18 17:11 17:12 17:16 19:10 Temp 96.7 96.7 Pulse 89 82 Resp 30 30 B/P (MAP) 148/85 (106) 140/86 (104) Pulse Ox 95 95 O2 Delivery Nasal Cannula Nasal Cannula Nasal Cannula Nasal Cannula O2 Flow Rate 2.00 2.00 2.00 2.00 Capillary Refill : Less Than 3 Seconds Blood Pressure Mean: 106 Progress Note : Progress Note Patient was treated with DuoNeb 2. This significantly improved his wheezing and difficulty breathing. Oxygen saturations were 95 percent on room air after treatment. Chest x-ray revealed no evidence of pneumonia. Influenza screen was negative. However, his symptoms are classic for influenza which has been rampant in the community recently. I offered him Tamiflu therapy which he accepted. Nausea was treated with Zofran and a take-home pack was provided. Wheezing responded very well to DuoNeb. A rescue inhaler was dispensed and patient was strongly encouraged to quit smoking. Patient was hydrated with IV fluids. Patient was advised to quit smoking. Diagnostic Imaging Diagonstic Imaging: Xray Plain Films/CT/US/NM/MRI: chest Comments Chest x-ray viewed by me and report reviewed. See report below: NAME: FARZANA MATTA [facility] REC#: [id number] PT STATUS: REG ER : 1965 PHYSICIAN: EVELYNE WIN MD ADMIT DATE: 07/04/18/ER Draft Date of Exam:07/04/18 CHEST 1 VIEW, AP/PA ONLY INDICATION: Cough and congestion. COMPARISON: 09/13/2013. EXAMINATION: Single frontal view of the chest was obtained. FINDINGS: Normal heart size and pulmonary vascularity. The lungs are well aerated and clear. No large pleural effusion or pneumothorax is seen. The visualized osseous structures show no acute abnormalities. IMPRESSION: No acute cardiopulmonary process. Dictated on workstation # [id number] Dict: 07/04/18 1741 Trans: 07/04/18 1751 [facility] [id number] Interpreted by: MONTANA CH MD Departure Impression Primary Impression: Flu-like symptoms Additional Impressions: Bronchospasm Nausea and vomiting Qualified Codes: R11.2 - Nausea with vomiting, unspecified Disposition: HOME, SELF-CARE Condition: Improved Departure-Patient Inst. Decision time for Depature: 18:39 Referrals: EVENS MICHELE MD (PCP/Family) Primary Care Physician Patient Instructions: Flu Add. Discharge Instructions: Drink plenty of clear liquids. Gradually advance your diet with small quantities of bland food as tolerated. Complete the entire course of Tamiflu as prescribed. Use Zofran (ondansetron) dissolved under the tongue every 4 hours as needed for nausea and vomiting. Tamiflu sometimes causes nausea. Zofran can be used to treat this as well. Avoid any exposure to cigarette smoke or other inhaled irritants. Return to care if symptoms are worsening despite treatment. Use your pro-air inhaler up to 4 puffs in a 4 hour period of time for shortness of breath, uncontrolled cough or wheezing. All discharge instructions reviewed with patient and/or family. Voiced understanding. EVELYNE WIN MD Jul 04, 2018 18:41
[2018-07-04 19:10] VITALS: BP 140/86
== END 2018-07-04 19:10 | disposition home or self-care (01) ==
LOC: EDUNIT# 16:51 → ER 16:52
DX: R06.02 Shortness of breath (principal); J98.01 Acute bronchospasm; R11.2 Nausea with vomiting, unspecified; J02.9 Acute pharyngitis, unspecified; M79.10 Myalgia, unspecified site; R68.83 Chills (without fever); J44.9 Chronic obstructive pulmonary disease, unspecified; I10 Essential (primary) hypertension; K21.9 Gastro-esophageal reflux disease without esophagitis; B19.20 Unspecified viral hepatitis C without hepatic coma; F12.10 Cannabis abuse, uncomplicated; F17.210 Nicotine dependence, cigarettes, uncomplicated; Z79.01 Long term (current) use of anticoagulants; Z87.442 Personal history of urinary calculi; Z80.1 Family history of malignant neoplasm of trachea, bronchus and lung; Z80.0 Family history of malignant neoplasm of digestive organs; Z90.89 Acquired absence of other organs; Z87.19 Personal history of other diseases of the digestive system; Z98.890 Other specified postprocedural states
CPT/HCPCS: 36415; 71045; 80053; 85025; 85610; 86141; 87804; 93041; 94640; 96361; 96374

== ENCOUNTER → 2018-07-26 | Outpatient (CLI) | payer MEDICARE ==
--- NOTE | 2018-07-26 11:01 | Diagnostic Imaging Report ---
PROCEDURE: US DOPPLER ABD/COMPLETE TECHNIQUE: Multiple real-time grayscale images were obtained over the kidneys in various projections. Duplex evaluation of renal arteries was also attempted. INDICATION: Cirrhosis. Liver measures 16 cm in size. There is marked parenchymal heterogeneity but no discrete liver mass is seen. No definite flow is seen within the main portal vein or its right and left branches consistent with portal vein thrombosis. The gallbladder does demonstrate some mild wall thickening at 4 mm but no stones or sludge are identified. There is no biliary duct dilatation. The pancreas was obscured. Spleen is upper limits of normal size 13.5 cm. Aorta appears nonaneurysmal. IVC is patent. The kidneys are unremarkable apart from the upper pole right renal cyst measuring 2.3 cm. There is no ascites. Hepatic Doppler again shows pleural vein being thrombosed. There is patent hepatic artery. There appears to be pulsatility within the hepatic veins. IMPRESSION: Cirrhosis without evidence of discrete liver mass. Portal vein is thrombosed. No significant splenomegaly or ascites is seen. Dictated by: Dictated on workstation # [id number]
== END ==
LOC: RAD 06:55
PROVIDERS: ATTEND Internal Medicine
DX: K74.69 Other cirrhosis of liver (principal); I81 Portal vein thrombosis; Z86.19 Personal history of other infectious and parasitic diseases
CPT/HCPCS: 93975

== ENCOUNTER 2018-08-09 11:19 | Outpatient (RCR) | payer MEDICARE, OTHER ==
[2018-08-09 11:46] LABS: INR 1.9 (0.8-1.4); PROTHROMBIN TIME PATIENT 22.2 SEC (12.2-14.7)
[2018-08-09 11:55] LABS: ALBUMIN 3.6 GM/DL (3.2-4.5); BILIRUBIN,DIRECT 0.9 MG/DL (0.0-0.3); BILIRUBIN,INDIRECT 1.4 MG/DL; BILIRUBIN,TOTAL 2.3 MG/DL (0.1-1.0); TOTAL PROTEIN 6.6 GM/DL (6.4-8.2)
== END 2018-11-07 | disposition home or self-care (01) ==
LOC: LAB 11:19
PROVIDERS: ATTEND Internal Medicine
DX: Z51.81 Encounter for therapeutic drug level monitoring (principal); Z79.01 Long term (current) use of anticoagulants; K74.69 Other cirrhosis of liver; R17 Unspecified jaundice; I81 Portal vein thrombosis; Z86.19 Personal history of other infectious and parasitic diseases
CPT/HCPCS: 36415; 80076; 85610

== ENCOUNTER → 2019-03-11 | Outpatient (CLI) | payer MEDICARE ==
[~2019-03-11] MED LIST changes: -TRAM50TA2 PO; +TRM50T PO
--- NOTE | 2019-03-11 14:47 | Diagnostic Imaging Report ---
PROCEDURE: US DOPPLER ABD/COMPLETE TECHNIQUE: Multiple real-time grayscale images were obtained over the kidneys in various projections. Duplex evaluation of renal arteries was also attempted. INDICATION: Liver cirrhosis. Hepatitis C. COMPARISON: 07/26/2018 FINDINGS: The pancreas appears normal at the head and body. The tail was not well seen due to bowel gas. The liver is heterogeneous and mildly echogenic. The imaged portions of the IVC appear normal. No focal hepatic lesions are seen. The right hepatic vein measures 19 cm/s with a normal-appearing waveform. The left hepatic vein demonstrates a normal waveform and measures 29 cm/s. The portal vein demonstrates no color flow, concerning for portal venous thrombosis. The hepatic artery measures 60 cm/s, with a normal waveform. Sonographic Parrish's sign is negative. The right kidney measures 12 cm in length and appears normal with no hydronephrosis or masses seen. Simple appearing cyst is seen in the right kidney which measures up to 2.5 cm. The gallbladder demonstrates no shadowing stones. Gallbladder wall is not thickened. No pericholecystic fluid is seen. The imaged portions of the aorta appear normal, with velocity measuring up to 72 cm/s. The spleen appears mildly prominent in size measuring 14 cm. The splenic vein is patent and appears normal. The splenic artery measures 79 cm/s with a normal waveform. The left kidney measures 13.1 cm in length. No significant hydronephrosis is seen. No solid masses are seen. There is no free fluid. IMPRESSION: 1. Redemonstrated thrombosed main portal vein with no flow visible. 2. Heterogeneous mildly echogenic liver, consistent with history of cirrhosis. No focal hepatic lesions are seen. Dictated by: Dictated on workstation # [id number]
== END ==
LOC: RAD 06:55
PROVIDERS: ATTEND Internal Medicine
DX: K74.69 Other cirrhosis of liver (principal); I81 Portal vein thrombosis; K76.89 Other specified diseases of liver; Z86.19 Personal history of other infectious and parasitic diseases
CPT/HCPCS: 93975

== ENCOUNTER → 2020-11-14 | Outpatient (CLI) | payer MEDICARE ==
[~2020-11-14] MED LIST changes: -WARF1TAB82 PO; +WRF1T PO
--- NOTE | 2020-11-14 09:18 | Diagnostic Imaging Report ---
PROCEDURE: US Gallbladder. TECHNIQUE: Multiple real-time grayscale images were obtained over the right upper quadrant in various projections. INDICATION: Portal vein thrombosis. Liver is upper limits of normal size at 17.8 cm. There is a circumscribed hypoechoic mass measuring 21 mm x 18 mm. No identifiable flow is identified in the portal vein consistent with portal vein thrombosis. Gallbladder is without stones or sludge. No wall thickening is identified. The extrahepatic bile duct was obscured. Pancreas is obscured. Aorta is nonaneurysmal. IVC is patent. Right kidney contains a 2.5 cm cyst in the upper pole. There is no ascites. IMPRESSION: 1. Portal vein thrombosis. 2. Probable cyst in the left lobe of the liver. Further evaluation with CT with and without IV contrast could be performed for better characterization. Dictated by: Dictated on workstation # [id number]
--- NOTE | 2020-11-14 12:18 | Diagnostic Imaging Report ---
EXAMINATION: CT chest without contrast (lung screening). TECHNIQUE: Multiple contiguous axial images were obtained through the chest without the use of intravenous contrast according to lung cancer screening protocol. All CT scans use one or more of the following dose optimizing techniques: automated exposure control, MA and/or KvP adjustment based on patient size and exam type or iterative reconstruction. HISTORY: [id number] history of smoking. COMPARISON: None available. FINDINGS: There is no edema or pneumonia. No pleural effusion. No pneumothorax. No suspicious nodules. There is mild right upper lobe atelectasis. Lungs are moderately emphysematous. There is no axillary or supraclavicular lymphadenopathy. There is no mediastinal lymphadenopathy. Heart size is normal. There are no coronary artery calcifications. No pericardial effusion. Aorta is normal in caliber. Limited views of the upper abdomen show cirrhosis of the liver. There are no suspicious osseous lesions. IMPRESSION: 1. No suspicious pulmonary nodules. 2. Cirrhotic liver. LUNG-RADS CATEGORY: 1 MODIFIER: S Dictated by: Dictated on workstation # [id number]
== END ==
LOC: RAD 07:45
PROVIDERS: ATTEND Pediatrics
DX: Z12.2 Encounter for screening for malignant neoplasm of respiratory organs (principal); I81 Portal vein thrombosis; K74.60 Unspecified cirrhosis of liver; F17.210 Nicotine dependence, cigarettes, uncomplicated
CPT/HCPCS: 71271; 76705

== ENCOUNTER → 2020-11-30 | Outpatient (CLI) | payer MEDICARE ==
[~2020-11-30] MED LIST changes: +HOLD METFORMIN - RECEIVED CONTRAST 20 ML VIAL IV SCH; +IOHEXOL 350 MG/ML 100 ML (OMNIPAQUE 350) VIAL IV ONE; +NS 100 ML (IVPB) BAG IV ONE
--- NOTE | 2020-11-30 09:24 | Diagnostic Imaging Report ---
PROCEDURE: CT abdomen with and without contrast. TECHNIQUE: Multiple contiguous axial CT images of the abdomen were obtained prior to and after intravenous administration of iodinated contrast. Auto Exposure Controls were utilized during the CT exam to meet ALARA standards for radiation dose reduction. INDICATION: Chronic liver failure. Compared with CT chest, abdomen and pelvis dated 09/13/2013 and correlated with gallbladder ultrasound 11/14/2020 as well as Doppler ultrasounds of the abdomen dating back to 2014. FINDINGS: The liver surface is nodular and somewhat atrophic consistent with the known chronic underlying cirrhosis. In segment 6 of the right hepatic lobe inferolaterally there is a hyperechoic focus measuring 2.2 cm in diameter, seen on the early arterial phase. At the delayed images it is imperceptible and at the precontrast enhanced imaging it is imperceptible. On ultrasound this is hypoechoic with posterior acoustical enhancement. The most recent comparison contrast-enhanced CT is performed in 2007 and lesion is imperceptible at that exam. The findings are conflicting, a cavernous hemangioma with flash filling could account for the CT appearance but would typically be hyperechoic at ultrasound. If neoplasm such as hepatoma or metastasis, I would expect a detectable mass effect and at least some perceptibility prior to and following contrast. Single phased hyperenhancing perfusion anomaly should not be detectable at ultrasound. As CT is unable to confirm the lesions benignity and in the setting of cirrhosis further workup recommended. Liver protocol abdominal MRI may be useful. Percutaneous sampling would be extremely challenging as the area is imperceptible on the noncontrasted CT. Spleen upper limits of size and perisplenic varicosities consistent with portal hypertension. There is enhancement of the lumen of the small caliber intra and left and right lobe proximal extrahepatic portal veins, absence of detectable flow at multiple previous Doppler exams is likely owing to that vessel is a very slow flow or hepatopetal flow. I cannot identify portal vein thrombus. The cava and hepatic veins are all patent. Some benign renal cortical cysts with no hydronephrosis. The adrenals are negative. Pancreas nonfocal and nonacute. There is no ileus or bowel obstruction. There is no abdominal ascites. The atherosclerotic aorta is patent and nonaneurysmal. There is no basilar pleural fluid. The lung bases themselves were clear. IMPRESSION: 1. Cirrhotic liver indeterminate hyperenhancing structure right hepatic lobe segment cyst corresponds to hypoechoic lesion at ultrasound. Imaging findings at this and multiple previous exams are inconclusive and admittedly conflicting. It is unclear if this is benign or malignant and perhaps a hepatic protocol MRI may provide further utility. 2. Cirrhosis with sequelae of portal hypertension but no ascites. Small caliber but opacified intra and extrahepatic portal veins with patency of the hepatic veins and no bile duct dilatation. 3. Benign renal cyst without hydronephrosis no ascites. No lymphadenopathy. Dictated by: Dictated on workstation # [id number]
== END ==
LOC: RAD 07:45
PROVIDERS: ATTEND Pediatrics
DX: K72.10 Chronic hepatic failure without coma (principal); N28.1 Cyst of kidney, acquired; K74.60 Unspecified cirrhosis of liver; K76.6 Portal hypertension
CPT/HCPCS: 74170

== ENCOUNTER → 2020-12-07 | Outpatient (CLI) | payer MEDICARE ==
[~2020-12-07] MED LIST changes: +GADOBUTROL 15 MMOL/15 ML (GADAVIST) VIAL IV ONE; -HOLD METFORMIN - RECEIVED CONTRAST 20 ML VIAL IV SCH; -IOHEXOL 350 MG/ML 100 ML (OMNIPAQUE 350) VIAL IV ONE; -NS 100 ML (IVPB) BAG IV ONE
--- NOTE | 2020-12-07 10:25 | Diagnostic Imaging Report ---
EXAMINATION: MRI of the abdomen with and without contrast. TECHNIQUE: Multiplanar, multisequence MR images of the abdomen were obtained with and without intravenous contrast. HISTORY: Liver failure COMPARISON: CT dated 11/30/2020 FINDINGS: The liver is cirrhotic. There is hepatic steatosis. There is a large splenorenal shunt. A 2.1 x 2.7 cm segment 5/6 liver lesion with arterial phase hyperenhancement, peripheral washout and pseudocapsule formation. It is T2 intermediate and shows diffusion restriction. There is a simple cyst in the right hemiliver. The gallbladder is normal. There is no biliary ductal dilation. Pancreas is normal. The pancreatic duct is normal. Spleen is normal. Adrenal glands are normal. The kidneys are normal with the exception of a few simple cysts. There is no hydronephrosis. Visualized bowel is normal. No lymphadenopathy is seen. Lung bases are clear. No osseus lesions are seen. IMPRESSION: 1. The segment 5/6 liver lesion is definitely hepatocellular carcinoma by LI-RADS criteria (LI-RADS 5). Liver is cirrhotic. Dictated by: Dictated on workstation # [id number]
== END ==
LOC: RAD 08:00
PROVIDERS: ATTEND Pediatrics
DX: K74.60 Unspecified cirrhosis of liver (principal); K72.10 Chronic hepatic failure without coma
CPT/HCPCS: 74183

== ENCOUNTER → 2021-01-07 | Outpatient (CLI) | payer MEDICARE ==
[~2021-01-07] MED LIST changes: -GADOBUTROL 15 MMOL/15 ML (GADAVIST) VIAL IV ONE
== END ==
LOC: LABNPT 06:51
PROVIDERS: ATTEND Radiology Vascular & Interventional Radiology
DX: Z20.822 Contact with and (suspected) exposure to COVID-19 (principal)
CPT/HCPCS: 87635

== ENCOUNTER 2021-01-13 10:39 | Emergency (ER) | payer MEDICARE ==
[~2021-01-13] VITALS: Ht 190 cm; Wt 117.0 kg
[2021-01-13 11:19] LABS: BASOPHILS % (AUTO) 0 % (0-10); EOSINOPHILS % (AUTO) 1 % (0-10); HEMATOCRIT 42 % (40-54); HEMOGLOBIN 14.6 g/dL (13.3-17.7); LYMPHOCYTES # (AUTO) 0.7 10^3/uL (1.0-4.0); LYMPHOCYTES % (AUTO) 15 % (12-44); MEAN CORPUSCULAR HEMOGLOBIN 34 pg (25-34); MEAN CORPUSCULAR HGB CONC 35 g/dL (32-36); MEAN CORPUSCULAR VOLUME 98 fL (80-99); MEAN PLATELET VOLUME 10.8 fL (9.0-12.2); MONOCYTES # (AUTO) 0.4 10^3/uL (0.0-1.0); MONOCYTES % (AUTO) 7 % (0-12); NEUTROPHILS # (AUTO) 3.9 10^3/uL (1.8-7.8); NEUTROPHILS % (AUTO) 77 % (42-75); PLATELET COUNT 103 10^3/uL (130-400); WHITE BLOOD COUNT 5.1 10^3/uL (4.3-11.0)
[2021-01-13] MEDS ORDERED: fentaNYL INJ 100 MCG/2 ML AMP IVP ONE ×2 (11:30→14:15)
[2021-01-13 11:37] LABS: ALBUMIN 3.1 GM/DL (3.2-4.5)
[2021-01-13 11:38] LABS: POTASSIUM 3.4 MMOL/L (3.6-5.0)
[2021-01-13 11:39] LABS: CALCIUM 8.4 MG/DL (8.5-10.1)
[2021-01-13 11:40] LABS: TOTAL PROTEIN 6.2 GM/DL (6.4-8.2)
[2021-01-13 11:42] LABS: BILIRUBIN,TOTAL 3.3 MG/DL (0.1-1.0)
[2021-01-13 11:44] LABS: CREATININE SERUM 0.87 MG/DL (0.60-1.30)
[2021-01-13] MEDS ORDERED: PROMETHAZINE INJ 25 MG/ML (PHENERGAN) AMP IVP ONE (11:45)
[2021-01-13] MEDS ORDERED: NS IV 1000 ML 1,000 ML IV SCH (11:45)
[2021-01-13 11:48] LABS: INR 1.3 (0.8-1.4)
[2021-01-13] MEDS ORDERED: IOHEXOL 350 MG/ML 100 ML (OMNIPAQUE 350) VIAL IV ONE (12:00)
[2021-01-13] MEDS ORDERED: HOLD METFORMIN - RECEIVED CONTRAST 20 ML VIAL IV SCH (12:00)
[2021-01-13] MEDS ORDERED: NS 100 ML (IVPB) BAG IV ONE (12:00)
--- NOTE | 2021-01-13 12:54 | ED Abdominal Pain ---
General Chief Complaint: Abdominal/GI Problems Stated Complaint: POST OP LIVER SURG,R SIDE ABD PAIN Nursing Triage Note: PT PRESENTS TO ED VIA POV FROM HOME WITH COMPLAINTS OF RUQ PAIN WORSE THIS AM. PT STATES HE HAD A LIVER BIOPSY/TUMOR REMOVAL AT ON THURSDAY. Source of Information: Patient Exam Limitations: No Limitations (CELY GUEVARA APRN) History of Present Illness Date Seen by Provider: Jan 13, 2021 Time Seen by Provider: 11:50 Initial Comments To ER with right upper quadrant abdominal pain. On 01/10/2021 he had a liver lesion biopsy as well as a transarterial chemoembolization of a hepatocellular carcinoma. History of cirrhosis secondary to alcoholic liver disease and hepatitis C. On warfarin for hx of portal vein thrombosis tho this was held for a few days prior to the procedure. Also has a history of esophageal varices. He denies any bleeding but reports right upper abdominal pain sharp in nature despite 2 of his oxycodone tablets prior to arrival. He has a small puncture wound covered with a Band-Aid to the lateral aspect of the right upper abdomen and puncture wound to the right groin for access as well. Timing/Duration: 1-2 Days Severity/Quality: Severe Location: RUQ Radiation: No Radiation Activities at Onset: None Associated Symptoms: Denies Symptoms (CELY GUEVARA APRN) Allergies and Home Medications Allergies Coded Allergies: No Known Drug Allergies (Unverified , 08/05/17) Patient Home Medication List Home Medication List Reviewed: Yes (CELY GUEVARA APRN) Levofloxacin (Levofloxacin) 500 Mg Tablet, 500 MG PO DAILY Prescribed by: CELY GUEVARA on 01/13/21 1423 Oxycodone HCl (Oxycodone HCl) 10 Mg Tablet, 10 MG PO TID Prescribed by: CELY GUEVARA on 01/13/21 1410 Pantoprazole Sodium (Protonix) 40 Mg Tablet.dr, 40 MG PO DAILY Prescribed by: LORY PITTS on 08/11/17 1008 Warfarin Sodium (Coumadin) 2 Mg Tablet, 2 MG PO DAILY, (Reported) Entered as Reported by: KIP MENDEZ on 08/05/17 1415 Review of Systems Review of Systems Constitutional: see HPI EENTM: No Symptoms Reported Respiratory: No Symptoms Reported Cardiovascular: See HPI Gastrointestinal: No Symptoms Reported Genitourinary: No Symptoms Reported Musculoskeletal: no symptoms reported Skin: no symptoms reported Psychiatric/Neurological: No Symptoms Reported Endocrine: No Symptoms Reported Hematologic/Lymphatic: No Symptoms Reported (CELY GUEVARA APRN) Past Ofcjafe-Jiukyj-Glkpzf Hx Patient Social History Smoking Status: Former Smoker Substance use?: No Alcohol Use?: No Pt feels they are or have been: No (CELY GUEVARA APRN) Immunizations Up To Date First/Initial COVID19 Vaccinat: NONE (CELY GUEVARA APRN) Seasonal Allergies Seasonal Allergies: No (CELY GUEVARA APRN) Past Medical History Surgery/Hospitalization HX: PMH: LIVER DISEASE, HTN Surgeries: Yes (MOLE REMOVAL HAND, stent in liver) Tonsillectomy Respiratory: Yes COPD, Emphysema Cardiac: Yes Hypertension Neurological: Yes (MILD HEADACHES) Reproductive Disorders: No Sexually Transmitted Disease: No HIV/AIDS: No Genitourinary: Yes Kidney Stones Gastrointestinal: Yes (BLOCKAGE TO LIVER, HEP C, portal vein thrombosis) Gastroesophageal Reflux, Liver Disease/Jaundice, Hepatitis, Cirrhosis Musculoskeletal: Yes Arthritis, Chronic Back Pain Endocrine: No Loss of Vision: Bilateral Hearing Impairment: Denies Cancer: No Psychosocial: No Sleep Difficulties Integumentary: No Blood Disorders: No Adverse Reaction/Blood Tranf: No (HAS HAD BLOOD WITH NO REACTION) (CELY GUEVARA APRN) Family Medical History Cancer 19 FATHER (LUNG CA) G8 BROTHER (59 YEAR OLD PANCREATIC CANCER) Family history: Diabetes mellitus 19 FATHER 19 MOTHER No Pertinent Family Hx (CELY GUEVARA APRN) Physical Exam Vital Signs Vital Signs - First Documented 01/13/21 11:00 Temp 35.9 Pulse 89 Resp 20 B/P (MAP) 147/83 (104) Pulse Ox 96 (EVELYNE WIN MD) Vital Signs Capillary Refill : Less Than 3 Seconds (CELY GUEVARA APRN) Height/Weight/BMI Height: 6'3.00" Weight: 250lbs. 3.0oz. 113.679343oa; 32.00 BMI Method:Estimated General Appearance: WD/WN, no apparent distress Neck: non-tender, full range of motion Respiratory: no respiratory distress, no accessory muscle use Cardiovascular: regular rate, rhythm, no murmur Gastrointestinal: normal bowel sounds, soft, tenderness Extremities: normal range of motion, non-tender Neurologic/Psychiatric: alert, normal mood/affect, oriented x 3 Skin: normal color, warm/dry (CELY GUEVARA APRN) Progress/Results/Core Measures Results/Orders Lab Results Laboratory Tests Test 01/13/21 10:52 Range/Units White Blood Count 5.1 4.3-11.0 10^3/uL Red Blood Count 4.29 L 4.30-5.52 10^6/uL Hemoglobin 14.6 13.3-17.7 g/dL Hematocrit 42 40-54 % Mean Corpuscular Volume 98 80-99 fL Mean Corpuscular Hemoglobin 34 25-34 pg Mean Corpuscular Hemoglobin Concent 35 32-36 g/dL Red Cell Distribution Width 12.9 10.0-14.5 % Platelet Count 103 L 130-400 10^3/uL Mean Platelet Volume 10.8 9.0-12.2 fL Immature Granulocyte % (Auto) 1 % Neutrophils (%) (Auto) 77 H 42-75 % Lymphocytes (%) (Auto) 15 12-44 % Monocytes (%) (Auto) 7 0-12 % Eosinophils (%) (Auto) 1 0-10 % Basophils (%) (Auto) 0 0-10 % Neutrophils # (Auto) 3.9 1.8-7.8 10^3/uL Lymphocytes # (Auto) 0.7 L 1.0-4.0 10^3/uL Monocytes # (Auto) 0.4 0.0-1.0 10^3/uL Eosinophils # (Auto) 0.0 0.0-0.3 10^3/uL Basophils # (Auto) 0.0 0.0-0.1 10^3/uL Immature Granulocyte # (Auto) 0.1 0.0-0.1 10^3/uL Prothrombin Time 17.0 H 12.2-14.7 SEC INR Comment 1.3 0.8-1.4 Sodium Level 136 135-145 MMOL/L Potassium Level 3.4 L 3.6-5.0 MMOL/L Chloride Level 106 98-107 MMOL/L Carbon Dioxide Level 18 L 21-32 MMOL/L Anion Gap 12 5-14 MMOL/L Blood Urea Nitrogen 11 7-18 MG/DL Creatinine 0.87 0.60-1.30 MG/DL Estimat Glomerular Filtration Rate 91 BUN/Creatinine Ratio 13 Glucose Level 128 H 70-105 MG/DL Calcium Level 8.4 L 8.5-10.1 MG/DL Corrected Calcium 9.1 8.5-10.1 MG/DL Total Bilirubin 3.3 H 0.1-1.0 MG/DL Aspartate Amino Transf (AST/SGOT) 117 H 5-34 U/L Alanine Aminotransferase (ALT/SGPT) 207 H 0-55 U/L Alkaline Phosphatase 94 40-136 U/L Total Protein 6.2 L 6.4-8.2 GM/DL Albumin 3.1 L 3.2-4.5 GM/DL Serum Alcohol < 10 <10 MG/DL (EVELYNE WIN MD) Vital Signs/I&O 01/13/21 01/13/21 11:00 14:32 Temp 35.9 Pulse 89 87 Resp 20 14 B/P (MAP) 147/83 (104) 138/76 Pulse Ox 96 97 (EVELYNE WIN MD) Blood Pressure Mean: 104 Departure Communication (Admissions) Family Conversation 1402-Discussed with Dr Bindu VIEIRA gastoenterology. Has no additional recommendations at this time though he will speak with interventional radiology. Patient has no indication of infection at this time no fever no chills and no left-sided pain. However, they would recommend some prophylactic Levaquin given the splenic injury. Reason for consult was the splenic infarct. NAME: FARZANA MATTA [facility] REC#: [id number] PT STATUS: REG ER : 1965 PHYSICIAN: CELY GUEVARA APRN ADMIT DATE: 01/13/21/ER Draft Date of Exam:01/13/21 CT ABDOMEN/PELVIS W PROCEDURE: CT abdomen and pelvis with contrast. TECHNIQUE: Multiple contiguous axial images were obtained through the abdomen and pelvis after administration of intravenous contrast. Auto Exposure Controls were utilized during the CT exam to meet ALARA standards for radiation dose reduction. All CT scans use one or more of the following dose optimizing techniques: automated exposure control, MA and/or KvP adjustment based on patient size and exam type or iterative reconstruction. DATE: January 13, 2021. COMPARISON: MRI abdomen December 07, 2020. CT abdomen November 30, 2020. INDICATION: 55-year-old male, history of cirrhosis with hepatocellular carcinoma. Abdominal pain. FINDINGS: The visualized portions of the lung bases are clear. The heart is not enlarged. There is no pericardial effusion. Liver is nodular in contour compatible with cirrhosis. There is a low-attenuation lesion in the inferior aspect of the right lobe of the liver measuring 1.4 cm in size with internal attenuation diagnostic for a benign cyst. There is a heterogeneous attenuation lesion in the peripheral aspect of the right lobe of the liver which include areas of internal gas and very high internal attenuation as well which measures 4.9 x 3.5 cm in size on axial image 26. This is increased in size since prior CT of November 30, 2020. There is a very high internal attenuation within the lesion appear fairly linear in distribution and may be within a vascular distribution. At least components of the lesion are treatment related. There is no additional identified liver lesion. The gallbladder is distended. There is no CT apparent gallstone. There is no biliary ductal dilation. The main pancreatic duct is not grossly dilated. Unremarkable appearance of the pancreatic parenchyma. There is a wedge-shaped area of low-attenuation in the spleen which is a new finding and may reflect a splenic infarct. The spleen is not enlarged. The adrenal glands are unremarkable. There is a low-attenuation right renal lesion on axial image 37 measuring 2.6 cm in size with internal attenuation compatible with a benign cyst. There is a 6 mm low-attenuation right renal lesion on axial image 41 too small to characterize. The urinary collecting systems are not distended. There is no identified renal or ureteral stone. Urinary bladder is unremarkable. The intestinal tract is not distended. There are areas of fatty wall thickening of the colon likely reflecting chronic colitis. There is no free intraperitoneal air. There is no drainable fluid collection. There is no sizable volume free pelvic fluid. There are atherosclerotic calcifications. There are dilated left upper quadrant collateral vessels. There is no identified abnormally enlarged lymph node in the abdomen or pelvis meeting CT size criteria for adenopathy. There are degenerative changes of the spine. There is no acute bony abnormality. There is soft tissue stranding in the right inguinal region. IMPRESSION: CT ABDOMEN AND PELVIS. 1. Cirrhosis with very heterogeneous attenuation lesion in the right lobe of the liver at site of previously noted enhancing liver lesion. The lesion currently measures larger in size since November 30, 2020; however, there are areas of internal gas and evidence of post treatment related changes at this location. It is difficult to assess for what components of the lesion may relate to residual or recurrent malignancy versus posttreatment related changes. 2. Benign cyst in the inferior aspect of the right lobe of the liver. 3. No identified metastatic lesion in the abdomen or pelvis. 4. New wedge-shaped area of low-attenuation in the spleen most likely reflecting a splenic infarct. 5. Soft tissue swelling in the right inguinal region which is nonspecific. Recommend correlation for potential cause of etiology. If there is no known cause, this can be seen with venous thrombosis. Dictated on workstation # [id number] Dict: 01/13/21 1242 Trans: 01/13/21 1316 [facility] [id number] Interpreted by: TRACEY GALLEGOS MD Electronically signed by: (CELY GUEVARA APRN) Impression Primary Impression: Splenic infarct Additional Impression: Other acute postprocedural pain Disposition: 01 HOME, SELF-CARE Condition: Stable Departure-Patient Inst. Decision time for Depature: 14:03 (CELY GUEVARA APRN) Referrals: KRISSY DOUGLAS MD (PCP/Family) Primary Care Physician Patient Instructions: No Instuctions Given, Postoperative Pain (DC) Scripts Levofloxacin (Levofloxacin) 500 Mg Tablet 500 MG PO DAILY, #7 TAB Prov: CELY GUEVARA APRN 01/13/21 Oxycodone HCl (Oxycodone HCl) 10 Mg Tablet 10 MG PO TID for 7 Days, #10 TAB Prov: CELY GUEVARA APRN 01/13/21 ATTENDING PHYSICIAN NOTE: I was physically present as attending physician in the emergency department during the care of this patient, but I was not directly involved in the decision making or delivery of care for this patient. (EVELYNE WIN MD) Copy Copies To 1: KRISSY DOUGLAS MD, PETER J APRN Jan 13, 2021 12:54 EVELYNE WIN MD Jan 15, 2021 14:26
--- NOTE | 2021-01-13 13:17 | Diagnostic Imaging Report ---
PROCEDURE: CT abdomen and pelvis with contrast. TECHNIQUE: Multiple contiguous axial images were obtained through the abdomen and pelvis after administration of intravenous contrast. Auto Exposure Controls were utilized during the CT exam to meet ALARA standards for radiation dose reduction. All CT scans use one or more of the following dose optimizing techniques: automated exposure control, MA and/or KvP adjustment based on patient size and exam type or iterative reconstruction. DATE: January 13, 2021. COMPARISON: MRI abdomen December 07, 2020. CT abdomen November 30, 2020. INDICATION: 55-year-old male, history of cirrhosis with hepatocellular carcinoma. Abdominal pain. FINDINGS: The visualized portions of the lung bases are clear. The heart is not enlarged. There is no pericardial effusion. Liver is nodular in contour compatible with cirrhosis. There is a low-attenuation lesion in the inferior aspect of the right lobe of the liver measuring 1.4 cm in size with internal attenuation diagnostic for a benign cyst. There is a heterogeneous attenuation lesion in the peripheral aspect of the right lobe of the liver which include areas of internal gas and very high internal attenuation as well which measures 4.9 x 3.5 cm in size on axial image 26. This is increased in size since prior CT of November 30, 2020. There is a very high internal attenuation within the lesion appear fairly linear in distribution and may be within a vascular distribution. At least components of the lesion are treatment related. There is no additional identified liver lesion. The gallbladder is distended. There is no CT apparent gallstone. There is no biliary ductal dilation. The main pancreatic duct is not grossly dilated. Unremarkable appearance of the pancreatic parenchyma. There is a wedge-shaped area of low-attenuation in the spleen which is a new finding and may reflect a splenic infarct. The spleen is not enlarged. The adrenal glands are unremarkable. There is a low-attenuation right renal lesion on axial image 37 measuring 2.6 cm in size with internal attenuation compatible with a benign cyst. There is a 6 mm low-attenuation right renal lesion on axial image 41 too small to characterize. The urinary collecting systems are not distended. There is no identified renal or ureteral stone. Urinary bladder is unremarkable. The intestinal tract is not distended. There are areas of fatty wall thickening of the colon likely reflecting chronic colitis. There is no free intraperitoneal air. There is no drainable fluid collection. There is no sizable volume free pelvic fluid. There are atherosclerotic calcifications. There are dilated left upper quadrant collateral vessels. There is no identified abnormally enlarged lymph node in the abdomen or pelvis meeting CT size criteria for adenopathy. There are degenerative changes of the spine. There is no acute bony abnormality. There is soft tissue stranding in the right inguinal region. IMPRESSION: CT ABDOMEN AND PELVIS. 1. Cirrhosis with very heterogeneous attenuation lesion in the right lobe of the liver at site of previously noted enhancing liver lesion. The lesion currently measures larger in size since November 30, 2020; however, there are areas of internal gas and evidence of post treatment related changes at this location. It is difficult to assess for what components of the lesion may relate to residual or recurrent malignancy versus posttreatment related changes. 2. Benign cyst in the inferior aspect of the right lobe of the liver. 3. No identified metastatic lesion in the abdomen or pelvis. 4. New wedge-shaped area of low-attenuation in the spleen most likely reflecting a splenic infarct. 5. Soft tissue swelling in the right inguinal region which is nonspecific. Recommend correlation for potential cause of etiology. If there is no known cause, this can be seen with venous thrombosis. Dictated by: Dictated on workstation # [id number]
[2021-01-13] MEDS ORDERED: OXYC10TA7 PO (14:09)
[2021-01-13] MEDS ORDERED: LEVO500T80 PO (14:23)
[2021-01-13 14:32] VITALS: BP 138/76
== END 2021-01-13 14:32 | disposition home or self-care (01) ==
LOC: EDUNIT# 10:39 → ER 10:42
DX: D73.5 Infarction of spleen (principal); G89.18 Other acute postprocedural pain; J44.9 Chronic obstructive pulmonary disease, unspecified; I10 Essential (primary) hypertension; K21.9 Gastro-esophageal reflux disease without esophagitis; G89.29 Other chronic pain; M54.9 Dorsalgia, unspecified; Z79.01 Long term (current) use of anticoagulants; Z79.899 Other long term (current) drug therapy; Z79.891 Long term (current) use of opiate analgesic
CPT/HCPCS: 74177; 80053; 85025; 85610; 99284; G0480; 36415; 80320

== ENCOUNTER 2021-01-19 13:48 | Emergency (ER) | payer MEDICARE ==
[~2021-01-19] VITALS: Ht 190 cm; Wt 117.9 kg
[~2021-01-19 13:48] MED LIST changes: +LEVO500T80 PO; +OXYC10TA7 PO
[2021-01-19] MEDS ORDERED: NS IV 1000 ML 1,000 ML IV STA (14:24)
[2021-01-19] MEDS ORDERED: ONDANSETRON 4 MG/2 ML (SDV) Z0FRAN IVP ONE (14:30)
[2021-01-19 14:41] LABS: BASOPHILS # (AUTO) 0.1 10^3/uL (0.0-0.1); BASOPHILS % (AUTO) 1 % (0-10)
[2021-01-19 14:43] LABS: EOSINOPHILS # (AUTO) 0.1 10^3/uL (0.0-0.3); EOSINOPHILS % (AUTO) 1 % (0-10); HEMATOCRIT 36 % (40-54); HEMOGLOBIN 13.1 g/dL (13.3-17.7); LYMPHOCYTES # (AUTO) 1.3 10^3/uL (1.0-4.0); LYMPHOCYTES % (AUTO) 16 % (12-44); MEAN CORPUSCULAR HEMOGLOBIN 34 pg (25-34); MEAN CORPUSCULAR HGB CONC 36 g/dL (32-36); MEAN CORPUSCULAR VOLUME 93 fL (80-99); MEAN PLATELET VOLUME 12.8 fL (9.0-12.2); MONOCYTES # (AUTO) 0.9 10^3/uL (0.0-1.0); MONOCYTES % (AUTO) 11 % (0-12); NEUTROPHILS # (AUTO) 5.5 10^3/uL (1.8-7.8); NEUTROPHILS % (AUTO) 68 % (42-75); PLATELET COUNT 50 10^3/uL (130-400); WHITE BLOOD COUNT 8.1 10^3/uL (4.3-11.0)
[2021-01-19 14:54] LABS: ALBUMIN 2.3 GM/DL (3.2-4.5); CHLORIDE 99 MMOL/L (98-107); POTASSIUM 3.3 MMOL/L (3.6-5.0); SODIUM 133 MMOL/L (135-145)
--- NOTE | 2021-01-19 14:54 | ED General ---
General Chief Complaint: Abdominal/GI Problems Stated Complaint: RLQ PAIN S/P SX, DIFFICULTY EATING Source of Information: Patient (VAGUE, DIFFICULT HISTORIAN AND SOMEWHAT HOSTILE ), Spouse (SOMEWHAT HOSTILE) History of Present Illness Date Seen by Provider: Jan 19, 2021 Time Seen by Provider: 14:14 Initial Comments PT ARRIVES VIA POV FROM HOME WITH PT STATES 9 DAYS AGO, HE HAD SURGERY AT --LIVER BIOPSY WITH TRANSARTERIAL CHEMOEMBOLIZATION OF HEPATOCELLULAR CARCINOMA ON 01/10/21 PT ALSO NOTED TO HAVE PORTAL VEIN THROMBOSIS AND HAS BEEN ON WARFARIN, WHICH WAS HELD FOR A FEW DAYS PRIOR TO PROCEDURE PT WITH CIRRHOSIS/ALCOHOLIC LIVER DISEASE AND HEPATITIS C, WELL ESOPHAGEAL VARICES. PT WAS SEEN HERE 01/13/21 FOR ONGOING RUQ PAIN SINCE PROCEDURE. LAB WAS FAIRLY NORMAL AT THAT TIME. CT OF ABDOMEN AND PELVIS WAS DONE AND WAS FOUND TO HAVE NEW SPLENIC INFARCT, ALONG WITH CIRRHOSIS AND LESION IN RIGHT LOBE OF LIVER-LARGER IN SIZE FROM 11/30/20 WITH POST-TREATMENT RELATED CHANGES. [facility] WAS CONSULTED AT THAT TIME AND PT WAS DEEMED STABLE TO SEND HOME, WITH RX'S FOR LEVAQUIN AND OXYCODONE PT HAS NOT ATTEMPTED TO FOLLOW UP WITH OR ANYONE SINCE THAT TIME, AND HAS NOT ATTEMPTED TO CONTACT [facility] HIMSELF AT ANY TIME SINCE THE PROCEDURE PT PRESENTS TODAY WITH VAGUE COMPLAINTS, STATING HE IS NOT BETTER. STATES IT IS NOT ANY WORSE AT ONE POINT DOES C/O ABDOMINAL PAIN, BUT STATES HE HAS NOT TAKEN ANY OXYCODONE OR ANYTHING FOR PAIN X 2 DAYS--STATES HE HAS 1 PAIN PILL LEFT AND DIDN'T WANT TO USE IT. PT'S STATES HE "WON'T DRINK OR EAT" AND PT VERIFIES THIS--STATES HE JUST DOESN'T FEEL LIKE IT. PT STATES HE HAS NOT URINATED SINCE SOMETIME YESTERDAY, BUT STATES HE DID NOT WAKE UP UNTIL 20 MINUTES PRIOR TO ARRIVAL HAS NOT HAD A BM IN 3 DAYS C/O NAUSEA, NO VOMITING--STATES HE DID TAKE A NAUSEA PILL THIS AM, BUT HAS NOT TAKEN ANY OF HIS OTHER MEDICATIONS TODAY OR YESTERDAY PT STATES "I KNOW I'VE NOT BEEN FOLLOWING ORDERS LIKE I'M SUPPOSED TO" NO FEVER/SWEATS/CHILLS NO COUGH NO SHORTNESS OF BREATH NO CHEST PAIN NO LOSS OF TASTE/SMELL PT HAS NOT HAD COVID-19 VACCINE AND REFUSES TO TAKE IT DENIES SICK CONTACTS. PCP: AMY, DR. Conrad [facility] Allergies and Home Medications Allergies Coded Allergies: No Known Drug Allergies (Unverified , 08/05/17) Patient Home Medication List Home Medication List Reviewed: Yes Levofloxacin (Levofloxacin) 500 Mg Tablet, 500 MG PO DAILY Prescribed by: CELY GUEVARA on 01/13/21 1423 Oxycodone HCl (Oxycodone HCl) 10 Mg Tablet, 10 MG PO TID Prescribed by: CELY GUEVARA on 01/13/21 1410 Pantoprazole Sodium (Protonix) 40 Mg Tablet.dr, 40 MG PO DAILY Prescribed by: LORY PITTS on 08/11/17 1008 Warfarin Sodium (Coumadin) 2 Mg Tablet, 2 MG PO DAILY, (Reported) Entered as Reported by: KIP MENDEZ on 08/05/17 1415 Review of Systems Review of Systems Constitutional: see HPI; No chills, No fever; malaise, weakness EENTM: no symptoms reported Respiratory: no symptoms reported; No cough, No orthopnea, No short of breath Cardiovascular: no symptoms reported; No chest pain, No edema, No palpitations, No syncope Gastrointestinal: see HPI, abdominal pain, constipation; No diarrhea; loss of appetite, nausea; No vomiting Genitourinary: see HPI, decreased output Musculoskeletal: no symptoms reported Skin: no symptoms reported Psychiatric/Neurological: No Symptoms Reported; Denies Headache, Denies Numbness, Denies Paresthesia, Denies Seizure, Denies Tingling, Denies Weakness Hematologic/Lymphatic: No Symptoms Reported; Denies Anemia, Denies Blood Clots, Denies Easy Bleeding, Denies Easy Bruising Immunological/Allergic: no symptoms reported Past Uhuiuxw-Xbrdij-Wvdbqn Hx Patient Social History Tobacco Use?: Yes Substance use?: Yes Alcohol Use?: Yes Immunizations Up To Date First/Initial COVID19 Vaccinat: NONE Seasonal Allergies Seasonal Allergies: No Past Medical History Surgery/Hospitalization HX: BILIARY STENT LIVER BIOPSY WITH TRANSARTERIAL CHEOMEMBOLIZATION OF HEPATOCELLULAR CARCINOMA 01/10/21 AT [facility] LEFT HAND Surgeries: Yes (MOLE REMOVAL HAND, STENT IN LIVER) Tonsillectomy Respiratory: Yes (BRONCHITIS) Pneumonia, COPD, Emphysema Cardiac: Yes Hypertension Neurological: Yes (MILD HEADACHES) Headaches /Migraines Reproductive Disorders: No Sexually Transmitted Disease: No HIV/AIDS: No Genitourinary: Yes Kidney Stones Gastrointestinal: Yes (HEPATOCELLULAR CA;HEP C-NO TX;PORTAL VEIN THROMBOSIS; SPLENIC INFARCT) Gastroesophageal Reflux, Liver Disease/Jaundice, Esophageal Varices, Hepatitis, Cirrhosis Musculoskeletal: Yes Arthritis, Chronic Back Pain Endocrine: No Loss of Vision: Bilateral Hearing Impairment: Denies Cancer: Yes Liver HEPATOCELLULAR CARCINOMA TREATED 01/10/21 WITH TRANSARTERIAL CHEMOEMBOLIZATION Psychosocial: Yes (POLYSUBSTANCE ABUSE;OD/SUICIDE ATTEMPT HYDROCODONE + XANAX 2007) Sleep Difficulties, Suicide Attempts Integumentary: No Blood Disorders: No Adverse Reaction/Blood Tranf: No (HAS HAD BLOOD WITH NO REACTION) Family Medical History Cancer 19 FATHER (LUNG CA) G8 BROTHER (59 YEAR OLD PANCREATIC CANCER) Family history: Diabetes mellitus 19 FATHER 19 MOTHER No Pertinent Family Hx SOCIAL HISTORY: PT IS EXTREMELY VAGUE AND WILL NOT OFFER ANY ADDITIONAL INFORMATION STATES HE QUIT SMOKING, DRUGS AND ALCOHOL ABOUT A MONTH AGO--WILL NOT STATE HOW MUCH HE SMOKED OR DRANK OR FOR HOW LONG, OR WHAT DRUGS HE USED, FOR HOW LONG, OR HOW HE USED THEM. PER OLD CHART: SMOKES 1 PPD, VERY HEAVY ALCOHOL USE, BUT NO SPECIFIC AMOUNT NOTED. Physical Exam Vital Signs Vital Signs - First Documented 01/19/21 13:59 Temp 35.8 Pulse 76 Resp 16 B/P (MAP) 116/67 (83) Pulse Ox 96 O2 Delivery Room Air Capillary Refill : Height, Weight, BMI Height: 6'3.00" Weight: 250lbs. 3.0oz. 113.741506gk; 32.00 BMI Method:Estimated General Appearance: No Apparent Distress, Obese, Other (MILDLY LETHARGIC/SLIGHTLY DROWSY) HEENT: Scleral Icterus (L), Scleral Icterus (R) Neck: Normal Inspection Respiratory: Normal Breath Sounds, No Accessory Muscle Use, No Respiratory Distress Cardiovascular: Regular Rate, Rhythm, No Edema, No JVD, No Murmur Gastrointestinal: Soft, Tenderness (MILD DIFFUSE TENDERNESS), Other (ROTUND BUT SOFT WITH ASCITES; PUNCTURE SITES TO RIGHT UPPER ABDOMEN AND RIGHT GROIN APPEAR NORMAL, WITH NO SIGNS OF INFECTION, NO SWELLING AND NO BRUISING, AND NO LEAKING FROM THE SITES. ) Back: No CVA Tenderness Extremity: Normal Inspection, Normal Range of Motion, Non Tender, No Calf Tenderness, No Pedal Edema Neurologic/Psychiatric: Alert, Oriented x3, No Motor/Sensory Deficits, title clerk automobile II- XII Norm as Tested Skin: Warm/Dry; No Ecchymosis; Jaundice; No Petechia Focused Exam Lactate Level 01/19/21 14:34: Lactic Acid Level 1.28 Lactic Acid Level Laboratory Tests Test 01/19/21 14:34 Lactic Acid Level 1.28 MMOL/L (0.50-2.00) Progress/Results/Core Measures Suspected Sepsis SIRS Temperature: Pulse: Respiratory Rate: Laboratory Tests 01/19/21 14:34: White Blood Count 8.1 Blood Pressure / Mean: 01/19/21 14:34: Lactic Acid Level 1.28 Laboratory Tests 01/19/21 14:34: Creatinine 3.75#H, INR Comment 1.3, Platelet Count 50L, Total Bilirubin 4.5H Results/Orders Lab Results Laboratory Tests Test 01/19/21 14:33 01/19/21 14:34 01/19/21 15:47 01/19/21 16:01 Range/Units Glucometer 136 H 70-110 MG/DL White Blood Count 8.1 4.3-11.0 10^3/uL Red Blood Count 3.89 L 4.30-5.52 10^6/uL Hemoglobin 13.1 L 13.3-17.7 g/dL Hematocrit 36 L 40-54 % Mean Corpuscular Volume 93 80-99 fL Mean Corpuscular Hemoglobin 34 25-34 pg Mean Corpuscular Hemoglobin Concent 36 32-36 g/dL Red Cell Distribution Width 14.2 10.0-14.5 % Platelet Count 50 L 130-400 10^3/uL Mean Platelet Volume 12.8 H 9.0-12.2 fL Immature Granulocyte % (Auto) 4 % Neutrophils (%) (Auto) 68 42-75 % Lymphocytes (%) (Auto) 16 12-44 % Monocytes (%) (Auto) 11 0-12 % Eosinophils (%) (Auto) 1 0-10 % Basophils (%) (Auto) 1 0-10 % Neutrophils # (Auto) 5.5 1.8-7.8 10^3/uL Lymphocytes # (Auto) 1.3 1.0-4.0 10^3/uL Monocytes # (Auto) 0.9 0.0-1.0 10^3/uL Eosinophils # (Auto) 0.1 0.0-0.3 10^3/uL Basophils # (Auto) 0.1 0.0-0.1 10^3/uL Immature Granulocyte # (Auto) 0.3 H 0.0-0.1 10^3/uL Neutrophils % (Manual) 67 % Lymphocytes % (Manual) 14 % Monocytes % (Manual) 10 % Band Neutrophils 5 % Atypical Lymphocytes 3 % Blast Cells 1 % Toxic Granulation 2+ Percent Immature Platelet Fraction 6.5 0.0-7.6 % Hypochromasia SLIGHT Anisocytosis SLIGHT Prothrombin Time 16.3 H 12.2-14.7 SEC INR Comment 1.3 0.8-1.4 Activated Partial Thromboplast Time 33 24-35 SEC Sodium Level 133 L 135-145 MMOL/L Potassium Level 3.3 L 3.6-5.0 MMOL/L Chloride Level 99 98-107 MMOL/L Carbon Dioxide Level 21 21-32 MMOL/L Anion Gap 13 5-14 MMOL/L Blood Urea Nitrogen 56 H 7-18 MG/DL Creatinine 3.75 #H 0.60-1.30 MG/DL Estimat Glomerular Filtration Rate 17 BUN/Creatinine Ratio 15 Glucose Level 135 H 70-105 MG/DL Lactic Acid Level 1.28 0.50-2.00 MMOL/L Calcium Level 8.0 L 8.5-10.1 MG/DL Corrected Calcium 9.4 8.5-10.1 MG/DL Magnesium Level 2.2 1.6-2.4 MG/DL Total Bilirubin 4.5 H 0.1-1.0 MG/DL Aspartate Amino Transf (AST/SGOT) 48 H 5-34 U/L Alanine Aminotransferase (ALT/SGPT) 44 0-55 U/L Alkaline Phosphatase 105 40-136 U/L Ammonia 82 H 11-32 UMOL/L Total Protein 5.1 L 6.4-8.2 GM/DL Albumin 2.3 L 3.2-4.5 GM/DL Amylase Level 45 25-125 U/L Lipase 90 H 8-78 U/L Procalcitonin 3.97 H <0.10 NG/ML Serum Alcohol < 10 <10 MG/DL SARS-CoV-2 RNA (RT-PCR) Not Detected Not Detecte Urine Color YELLOW Urine Clarity SL CLOUDY Urine pH 6.0 5-9 Urine Specific Lynn 1.015 L 1.016-1.022 Urine Protein NEGATIVE NEGATIVE Urine Glucose (UA) NEGATIVE NEGATIVE Urine Ketones NEGATIVE NEGATIVE Urine Nitrite NEGATIVE NEGATIVE Urine Bilirubin NEGATIVE NEGATIVE Urine Urobilinogen 2.0 < = 1.0 MG/DL Urine Leukocyte Esterase NEGATIVE NEGATIVE Urine RBC (Auto) NEGATIVE NEGATIVE Urine RBC RARE /HPF Urine WBC 0-2 /HPF Urine Squamous Epithelial Cells 2-5 /HPF Urine Renal Epithelial Cells 0-2 /HPF Urine Crystals NONE /LPF Urine Bacteria NEGATIVE /HPF Urine Casts PRESENT /LPF Urine Hyaline Casts 2-5 H /LPF Urine Waxy Casts 0-2 H /LPF Urine Mucus NEGATIVE /LPF Urine Culture Indicated NO Urine Opiates Screen NEGATIVE NEGATIVE Urine Oxycodone Screen POSITIVE H NEGATIVE Urine Methadone Screen NEGATIVE NEGATIVE Urine Propoxyphene Screen NEGATIVE NEGATIVE Urine Barbiturates Screen NEGATIVE NEGATIVE Ur Tricyclic Antidepressants Screen NEGATIVE NEGATIVE Urine Phencyclidine Screen NEGATIVE NEGATIVE Urine Amphetamines Screen NEGATIVE NEGATIVE Urine Methamphetamines Screen NEGATIVE NEGATIVE Urine Benzodiazepines Screen POSITIVE H NEGATIVE Urine Cocaine Screen NEGATIVE NEGATIVE Urine Cannabinoids Screen POSITIVE H NEGATIVE My Orders Orders - SHAUNA TREVINO DO Accucheck Stat ONCE (01/19/21 14:24) Ed Iv/Invasive Line Start (01/19/21 14:24) Monitor-Rhythm Ecg Trace Only (01/19/21 14:24) Alcohol (01/19/21 14:24) Ammonia (01/19/21 14:24) Amylase (01/19/21 14:24) Cbc With Automated Diff (01/19/21 14:24) Comprehensive Metabolic Panel (01/19/21 14:24) Drug Screen Stat (Urine) (01/19/21 14:24) Lactic Acid Analyzer (01/19/21 14:24) Lipase (01/19/21 14:24) Magnesium (01/19/21 14:24) Procalcitonin (Pct) (01/19/21 14:24) Protime With Inr (01/19/21 14:24) Partial Thromboplastin Time (01/19/21 14:24) Ua Culture If Indicated (01/19/21 14:24) Ondansetron Injection (Zofran Injectio (01/19/21 14:30) Ns Iv 1000 Ml (Sodium Chloride 0.9%) (01/19/21 14:24) Ed Iv/Invasive Line Start (01/19/21 14:24) Manual Differential (01/19/21 14:34) Covid 19 Inhouse Test (01/19/21 15:49) Isolation Central Supply Req (01/19/21 15:49) Medications Given in ED Current Medications Medications Dose Ordered Sig/Lou Route Start Time Stop Time Status Last Admin Dose Admin Ondansetron HCl 8 mg ONCE ONCE IVP 01/19/21 14:30 01/19/21 14:31 DC 01/19/21 14:38 8 MG Vital Signs/I&O 01/19/21 01/19/21 13:59 17:18 Temp 35.8 35.8 Pulse 76 75 Resp 16 14 B/P (MAP) 116/67 (83) 142/66 Pulse Ox 96 98 O2 Delivery Room Air Room Air Capillary Refill : Point of Care Testing Finger Stick Blood Glucose: 136 Progress Note : Progress Note GIVEN IV FLUIDS AND ZOFRAN NO DETERIORATION IN PT'S CONDITION DURING ER STAY PT SLEPT/RESTED QUIETLY FOR ENTIRE ER STAY. VITALS STABLE -NO TACHYCARDIA -NO HYPOTENSION -NO HYPOXIA -NO TACHYPNEA -NO FEVER PT FINALLY ABLE TO VOID AFTER 2 LITERS OF IV FLUIDS STATES NAUSEA IS BETTER WITH ZOFRAN--NO VOMITING DURING ER STAY, AND PT ABLE TO TOLERATE WATER PRIOR TO TRANSFER Departure Communication (Admissions) 1504--CALLED [facility]. THEY WILL CALL BACK. 1543--[facility] CALLED BACK, DISCUSSED WITH DR. OLMSTEAD, WHO ACCEPTS PT FOR ADMIT/TRANSFER. NO ADDITIONAL RECOMMENDATIONS AT THIS TIME, OTHER THAN COVID-19 TEST. WILL CALL THEM BACK WITH RESULTS. 1622--CALLED [facility] BACK WITH COVID-19 RESULTS, AND ALL TEST RESULTS FAXED TO THEM. THEY WILL CALL BACK WITH BED ASSIGNMENT 1650--UNABLE TO SECURE EMS TRANSPORT UNTIL SOMETIME AFTER 2200 TONIGHT, WOULD LIKE TO TAKE PT BY POV. 1657--[facility] WAS CONTACTED, AND THEY ARE AGREEABLE TO TRANSFER BY POV, PT AND VITALS ARE STABLE, AND ADVISE THAT IV MAY BE LEFT IN PLACE AND SECURED. IS AGREEABLE TO THIS PLAN, IS PATIENT. Impression Primary Impression: Acute renal failure Additional Impressions: Dehydration POST PROCEDURAL ABDOMINAL PAIN Cirrhosis of liver with ascites Hepatocellular carcinoma Alcoholic liver disease Hepatitis C Portal vein thrombosis Splenic infarct ELEVATED AMMONIA LEVEL Electrolyte imbalance Disposition: XF SHT-TRM HOSP Condition: Stable Transfer Transfer Reason: Exceeds level of care Transfer Facility: [place], [place] Method of Transfer: Private Vehicle Departure-Patient Inst. Referrals: KRISSY DOUGLAS MD (PCP/Family) Primary Care Physician SHAUNA TREVINO DO Jan 19, 2021 14:54
[2021-01-19 14:55] LABS: INR 1.3 (0.8-1.4); PROTHROMBIN TIME PATIENT 16.3 SEC (12.2-14.7)
[2021-01-19 14:56] LABS: AMMONIA 82 UMOL/L (11-32); AMYLASE 45 U/L (25-125)
[2021-01-19 14:57] LABS: GLUCOSE 135 MG/DL (70-105); TOTAL PROTEIN 5.1 GM/DL (6.4-8.2)
[2021-01-19 14:58] LABS: CARBON DIOXIDE 21 MMOL/L (21-32)
[2021-01-19 14:59] LABS: BILIRUBIN,TOTAL 4.5 MG/DL (0.1-1.0)
[2021-01-19 15:00] LABS: ALKALINE PHOSPHATASE 105 U/L (40-136); CREATININE SERUM 3.75 MG/DL (0.60-1.30); GFR ESTIMATED 17
[2021-01-19 15:01] LABS: BUN/CREATININE RATIO 15
[2021-01-19 15:03] LABS: ALANINE AMINOTRANSFERASE 44 U/L (0-55); MAGNESIUM 2.2 MG/DL (1.6-2.4)
[2021-01-19 15:04] LABS: LIPASE 90 U/L (8-78)
[2021-01-19 15:30] LABS: ANISOCYTOSIS SLIGHT; ATYPICAL LYMPHOCYTES 3 %; BAND NEUTROPHILS 5 %; BLAST CELLS 1 %; HYPOCHROMASIA SLIGHT; LYMPHOCYTES % (MANUAL) 14 %; MONOCYTES % (MANUAL) 10 %; NEUTROPHILS % (MANUAL) 67 %
[2021-01-19 15:31] LABS: TOXIC GRANULATION/VACUOLAZATIO 2+
[2021-01-19 16:08] LABS: BILIRUBIN,URINE NEGATIVE (NEGATIVE); CLARITY,URINE SL CLOUDY; COLOR,URINE YELLOW; GLUCOSE, URINE (UA) NEGATIVE (NEGATIVE); KETONES,URINE NEGATIVE (NEGATIVE); LEUKOCYTE ESTERASE ,URINE NEGATIVE (NEGATIVE); NITRITE,URINE NEGATIVE (NEGATIVE); PROTEIN,URINE NEGATIVE (NEGATIVE)
[2021-01-19 16:19] LABS: AMPHETAMINE SCREEN, URINE NEGATIVE (NEGATIVE); BARBITURATE SCREEN URINE NEGATIVE (NEGATIVE); BENZODIAZEPINES SCREEN URINE POSITIVE (NEGATIVE); CANNABINOID SCREEN, URINE POSITIVE (NEGATIVE); COCAINE SCREEN URINE NEGATIVE (NEGATIVE); METHADONE STAT NEGATIVE (NEGATIVE); METHAMPHETAMINE SCREEN URINE S NEGATIVE (NEGATIVE); OPIATE SCREEN URINE NEGATIVE (NEGATIVE); OXYCODONE STAT POSITIVE (NEGATIVE); PROPOXYPHENE STAT NEGATIVE (NEGATIVE); TRICYCLIC ANTIDEPRESSANTS SCRE NEGATIVE (NEGATIVE)
[2021-01-19 16:24] LABS: BACTERIA,URINE NEGATIVE /HPF; RBC,URINE RARE /HPF; RENAL EPITHELIAL CELLS,URINE 0-2 /HPF; WAXY CASTS,URINE 0-2 /LPF; WBC,URINE 0-2 /HPF
[2021-01-19 17:18] VITALS: BP 142/66
== END 2021-01-19 17:25 | disposition short-term general hospital (02) ==
LOC: EDUNIT# 13:48 → ER 13:50
DX: G89.18 Other acute postprocedural pain (principal); N17.9 Acute kidney failure, unspecified; E86.0 Dehydration; K70.31 Alcoholic cirrhosis of liver with ascites; C22.0 Liver cell carcinoma; I81 Portal vein thrombosis; D73.5 Infarction of spleen; E72.20 Disorder of urea cycle metabolism, unspecified; E87.8 Other disorders of electrolyte and fluid balance, not elsewhere classified; I10 Essential (primary) hypertension; J43.9 Emphysema, unspecified; K21.9 Gastro-esophageal reflux disease without esophagitis; G89.29 Other chronic pain; M54.9 Dorsalgia, unspecified; E66.9 Obesity, unspecified; Z68.32 Body mass index [BMI] 32.0-32.9, adult; Z79.891 Long term (current) use of opiate analgesic; Z79.899 Other long term (current) drug therapy; Z20.822 Contact with and (suspected) exposure to COVID-19
CPT/HCPCS: 80053; 80306; 81000; 82140; 82150; 82947; 83605; 83690; 83735; 84145; 85007; 85025; 85027; 85610; 85730; 87636; 93041; 96374; 99285; G0480; 36415; 80320

== ENCOUNTER 2021-04-25 11:14 | Outpatient (CLI) | payer MEDICARE ==
[~2021-04-25] VITALS: Ht 190 cm; Wt 96.5 kg
[~2021-04-25 11:14] MED LIST changes: -LEVO500T80 PO; +LEVO500T81 PO
[2021-04-25] MEDS ORDERED: ERGO1250 PO (12:17)
[2021-04-25] MEDS ORDERED: LISI40TA9 PO (12:17)
[2021-04-25] MEDS ORDERED: OXYC5TAB PO (12:17)
[2021-04-25] MEDS ORDERED: ONDA8TAB13 PO (12:17)
[2021-04-25] MEDS ORDERED: FURO20TA4 PO (12:17)
[2021-04-25] MEDS ORDERED: WRF1T PO (12:17)
== END 2021-04-25 12:18 | disposition home or self-care (01) ==
LOC: PREOP 11:14
PROVIDERS: ATTEND Surgery
DX: Z01.818 Encounter for other preprocedural examination (principal)

== ENCOUNTER 2021-04-29 10:37 | Day surgery (SDC) | payer MEDICARE ==
[~2021-04-29] VITALS: Ht 190.5 cm; Wt 96.5 kg
[2021-04-29] VITALS (7 sets, daily range): BP systolic 109–146; BP diastolic 70–92
[~2021-04-29 10:37] MED LIST changes: +ERGO1250 PO; +LISI40TA9 PO; +ONDA8TAB13 PO; +OXYC5TAB PO
[2021-04-29 11:14] LABS: AMPHETAMINE SCREEN, URINE NEGATIVE (NEGATIVE); BARBITURATE SCREEN URINE NEGATIVE (NEGATIVE); BENZODIAZEPINES SCREEN URINE POSITIVE (NEGATIVE); CANNABINOID SCREEN, URINE POSITIVE (NEGATIVE); COCAINE SCREEN URINE NEGATIVE (NEGATIVE); METHADONE STAT NEGATIVE (NEGATIVE); METHAMPHETAMINE SCREEN URINE S NEGATIVE (NEGATIVE); OPIATE SCREEN URINE NEGATIVE (NEGATIVE); OXYCODONE STAT POSITIVE (NEGATIVE); PROPOXYPHENE STAT NEGATIVE (NEGATIVE); TRICYCLIC ANTIDEPRESSANTS SCRE NEGATIVE (NEGATIVE)
[2021-04-29] MEDS ORDERED: LACTATED RINGERS 1,000 ML IV PRN (11:30)
[2021-04-29] MEDS ORDERED: ceFAZolin 2 GM IV Premixed 50 ML IV ONE (11:30)
[2021-04-29] MEDS ORDERED: 0.9% SODIUM CHLORIDE PF INJ 20 ML VIAL ONE (11:44)
[2021-04-29] MEDS ORDERED: HEParin (CENTRAL IV FLUSH) 500 UNIT/5 ML SYR ONE (11:44)
[2021-04-29] MEDS ORDERED: LIDOCAINE/EPI 1%-1:200,000 (XYLOCAINE) 30 ML VIAL ONE (11:45)
[2021-04-29] MEDS ORDERED: fentaNYL INJ 100 MCG/2 ML AMP ONE (12:07)
[2021-04-29] MEDS ORDERED: PROPOFOL INJECTION 50 ML IV ONE (12:07)
[2021-04-29] MEDS ORDERED: MIDAZOLAM 2 MG/2 ML (VERSED) VIAL ONE (12:08)
--- NOTE | 2021-04-29 12:09 | Progress Note-Pre Operative ---
Pre-Operative Progress Note H&P Reviewed The H&P was reviewed, patient examined and no changes noted. Date Seen by Provider: Apr 29, 2021 Time Seen by Provider: 12:09 Date H&P Reviewed: Apr 29, 2021 Time H&P Reviewed: 12:09 Pre-Operative Diagnosis: pancreatic cancer LORY PITTS DO Apr 29, 2021 12:09
[2021-04-29] MEDS ORDERED: morphine INJ 10 MG/ML 1ML (SYR OR VIAL) IVP ONE (13:15)
[2021-04-29] MEDS ORDERED: ONDANSETRON 4 MG/2 ML (SDV) Z0FRAN IVP PRN (13:15)
--- NOTE | 2021-04-29 13:15 | Diagnostic Imaging Report ---
INDICATION: Need for long-term IV access. COMPARISON: None. TOTAL FLUOROSCOPY TIME: 14 seconds. TOTAL NUMBER OF FLUOROSCOPIC IMAGES SAVED: 1. FINDINGS: A single intraoperative image intensifier view of the chest was obtained during Port-A-Cath placement. The image provided shows a right internal jugular venous approach. The distal tip terminates over the low SVC. Evaluation for pneumothorax is suboptimal given the fluoroscopic modality. Please note, the interpreting radiologist was not present during the procedure. IMPRESSION: Fluoroscopic guidance provided during Port-A-Cath placement. Dictated by: Dictated on workstation # [id number]
--- NOTE | 2021-04-29 13:32 | Diagnostic Imaging Report ---
INDICATION: Port placement. TIME OF EXAM: 1:20 PM Correlation is made with prior chest 07/04/2018. Right chest wall port has tip overlying SVC right atrial junction. No pneumothorax is seen. There appears to be some infiltrate or atelectasis right base. IMPRESSION: Port placement on the right. No pneumothorax is identified. Dictated by: Dictated on workstation # [id number]
--- NOTE | 2021-04-29 13:55 | Anesthesia-General Post-Op ---
MAC Patient Condition Mental Status/LOC: Same as Preop Cardiovascular: Satisfactory Nausea/Vomiting: Absent Respiratory: Satisfactory Pain: Controlled Complications: Absent Post Op Complications Complications None Follow Up Care/Instructions Patient Instructions None needed. Anesthesiology Discharge Order Discharge Order Patient is doing well, no complaints, stable vital signs, no apparent adverse anesthesia problems. No complications reported per nursing. MARILIN AGUDELO CRNA Apr 29, 2021 13:55
--- NOTE | 2021-04-29 14:12 | Discharge Inst-Simple/Standard ---
Discharge Inst-Standard Patient Instructions/Follow Up Plan of Care/Instructions/FU: 2 weeks Moo Activity as Tolerated: No Discharge Diet: Regular Diet Other Inst to Patient Follow up Appt: Make appointment for 2 week. Instructions: No lifting greater than 10 pounds. No strenuous activity. May shower in 24 hours, no tub bath or soaking. Use incentive spirometer at home as directed. No Smoking Keep area clean and dry. Skin/Wound Care: You have special glue over your incision that will fall off on it's own. Keep bandage on, cancer center will change. Have port flushed every 90 days. Symptoms to Report: Appetite Changes, Extremity Discoloration, Numbness/Tingling, Swelling Increased, Bleeding Excessive, Eyesight Changes, Pain Increased, Urine Color Change, Constipation(Persistent), Fever over 101 degree F, Pain/Pressure in chest, Urinating Difficulty, Cough Up/Vomit Blood, Heart Beat Irreg/Pounding, Pain/Pressure in jaw, Vaginal Bleeding Increase, Cramps in feet or legs, Lightheadedness, Pain/Pressure in shoulder, Diarrhea(Persistent), Memory Changes Suddenly, Questions/Concerns, Weight gain consecutive days, Dizziness/Fainting, Nausea/Vomiting, Shortness of Breath, Weight gain over 2 pounds If questions or concerns contact your physician Or seek help at emergency department. LORY PITTS DO Apr 29, 2021 14:12
--- NOTE | 2021-04-29 14:18 | Progress Note-Post Operative ---
Post-Operative Progess Note Surgeon (s)/Restuarant Crew Worker (s) Surgeon LORY PITTS DO Restuarant Crew Worker: na Pre-Operative Diagnosis pancreatic cancer Post-Operative Diagnosis same Procedure & Operative Findings Date of Procedure 04/29/21 Procedure Performed/Findings PROCEDURE: Right internal jugular port placement using ultrasound guidance. COMPLICATIONS: None. INDICATIONS: The patient is a 55 year old male with. Patient understands the risks and benefits of port placement and wished to proceed with the procedure. Consent was signed on the chart. PROCEDURE: The patient was taken to the operating suite, was prepped and draped in the sterile fashion. A surgical pause was performed. Ultrasound was used to locate the internal jugular vein. Once located anesthetic was infiltrated above it. Using micro-access kit, the right internal vein was accessed. Dark nonpulsatile blood was withdrawn. The wire was inserted. Fluoroscopy assured proper placement. The needle was removed. The micro-access dilator was advanced over the wire and the wire was removed. The regular wire was inserted and fluoroscopy assured proper placement. The wire was then secured. Local anesthetic was used to anesthetize from the neck for tunneling down to the right chest and for pocket creation. A 15 blade scalpel was used to make an incision over the right chest. Cautery was used to dissect down to the pectoral fascia. A pocket was created with blunt dissection. The dilator sheath was then advanced over the wire under fluoroscopy and the dilator and wire were removed. The Groshong catheter was inserted through the sheath and the sheath was then removed. The Groshong wire was removed. The catheter was then tunneled to the right chest pocket. Fluoroscopy was used to cut to length and this was then attached to the port which was then placed within the pocket. The port was then accessed without difficulty. It was then flushed with saline and then heparin. The subcutaneous tissues were then reapproximated using 3-0 Vicryl. The areas were then washed and dried. Skin Affix was placed over incision. The insertion point of the neck Skin Affix was placed over the incision. The patient tolerated the procedure well without complication and was taken to recovery room in stable condition. Chest x-ray is pending. Anesthesia Type mac c local Estimated Blood Loss Estimated blood loss (mL): minimal Specimens/Packing Specimens Removed LORY Maddox DO Apr 29, 2021 14:18
== END 2021-04-29 14:40 | disposition home or self-care (01) ==
LOC: SDC 10:37
PROVIDERS: ATTEND Surgery
DX: C25.9 Malignant neoplasm of pancreas, unspecified (principal); I10 Essential (primary) hypertension; J44.9 Chronic obstructive pulmonary disease, unspecified; K21.9 Gastro-esophageal reflux disease without esophagitis; G43.909 Migraine, unspecified, not intractable, without status migrainosus; E66.9 Obesity, unspecified; F32.A Depression, unspecified; F41.9 Anxiety disorder, unspecified; G89.29 Other chronic pain; M54.9 Dorsalgia, unspecified; Z79.2 Long term (current) use of antibiotics; Z79.891 Long term (current) use of opiate analgesic; Z79.899 Other long term (current) drug therapy; Z87.891 Personal history of nicotine dependence; Z68.26 Body mass index [BMI] 26.0-26.9, adult; Z79.01 Long term (current) use of anticoagulants; Z85.05 Personal history of malignant neoplasm of liver
CPT/HCPCS: 36561; 71045; 76000; 80306; 87081; C1788

== ENCOUNTER 2021-05-06 12:53 | Emergency (ER) | payer MEDICARE ==
[~2021-05-06] VITALS: Ht 190 cm; Wt 86.0 kg
--- NOTE | 2021-05-06 13:48 | ED General ---
General Chief Complaint: General Problems/Pain Stated Complaint: DECLINE IN HEALTH Nursing Triage Note: LIVER/PANCREASE CA PT NOT FEELING WELL, NOT EATING OR DRINKING Source of Information: Patient Exam Limitations: No Limitations History of Present Illness Date Seen by Provider: May 06, 2021 Time Seen by Provider: 13:46 Initial Comments To ER by private vehicle from home with general weakness poor appetite. Family is also concerned about persistent hiccups. He has a known pancreatic cancer following with [facility]. Scheduled to start chemotherapy tomorrow. Family states that no one has mentioned hospice to them, however [facility] note suggests that questioned hospice today during a phone call with them. 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 Timing/Duration: 1-2 Days Severity: Moderate Associated Systoms: Denies Symptoms Allergies and Home Medications Allergies Coded Allergies: No Known Drug Allergies (Unverified , 08/05/17) Patient Home Medication List Home Medication List Reviewed: Yes Dronabinol (Syndros) 5 Mg/1 Ml Solution, 2.5 MG PO BID Prescribed by: CELY GUEVARA on 05/06/21 155 Ergocalciferol (Vitamin D2) (Vitamin D2) 1,250 Mcg Capsule, 1,250 MCG PO WEEK, (Reported) Entered as Reported by: ROSMERY CRANDALL on 04/25/211216 Furosemide (Furosemide) 20 Mg Tablet, 20 MG PO DAILY, (Reported) Entered as Reported by: ROSMERY CRANDALL on 04/25/217 Lisinopril (Lisinopril) 40 Mg Tablet, 40 MG PO DAILY, (Reported) Entered as Reported by: ROSMERY CRANDALL on 04/25/217 Ondansetron (Ondansetron Odt) 8 Mg Tab.rapdis, 8 MG PO BID PRN for NAUSEA/VOMITING, (Reported) Entered as Reported by: ROSMERY CRANDALL on 04/25/217 Ondansetron (Ondansetron Odt) 4 Mg Tab.rapdis, 4 MG PO Q6H PRN for NAUSEA/VOMITING Prescribed by: CELY GUEVARA on 05/06/212050 Oxycodone HCl (Oxycodone HCl) 5 Mg Tablet, 5 MG PO Q6H PRN for PAIN-MODERATE (5- 7), (Reported) Entered as Reported by: ROSMERY CRANDALL on 04/25/21 1217 Warfarin Sodium (Warfarin Sodium) 1 Mg Tablet, 1 MG PO DAILY, (Reported) Entered as Reported by: ROSMERY CRANDALL on 04/25/21 1217 Review of Systems Review of Systems Constitutional: see HPI, other (hiccups) EENTM: see HPI Respiratory: no symptoms reported Cardiovascular: no symptoms reported Genitourinary: no symptoms reported Musculoskeletal: no symptoms reported Skin: no symptoms reported Psychiatric/Neurological: No Symptoms Reported Hematologic/Lymphatic: No Symptoms Reported Past Chbdgjk-Zwiqli-Lsurkt Hx Patient Social History Tobacco Use?: Yes Tobacco type used: Cigarettes Smoking Status: Former Smoker Substance use?: No Alcohol Use?: No Immunizations Up To Date First/Initial COVID19 Vaccinat: NONE Second COVID19 Vaccination Wily: NONE Third COVID19 Vaccination Date: NONE Seasonal Allergies Seasonal Allergies: No Past Medical History Surgery/Hospitalization HX: BILIARY STENTLIVER BIOPSY WITH TRANSARTERIAL CHEOMEMBOLIZATION OF HEPATOCELLULARCARCINOMA 01/10/21 AT [facility] LEFT HAND Surgeries: Yes (MOLE REMOVAL HAND, STENT IN LIVER) Tonsillectomy Respiratory: Yes COPD, Emphysema Cardiac: Yes Hypertension Neurological: Yes (MILD HEADACHES) Headaches /Migraines Reproductive Disorders: No Sexually Transmitted Disease: No HIV/AIDS: No Genitourinary: Yes Kidney Stones Gastrointestinal: Yes (HEPATOCELLULAR CA;HEP C-NO TX;PORTAL VEIN THROMBOSIS; SPLENIC INFARCT) Gastroesophageal Reflux, Liver Disease/Jaundice, Esophageal Varices, Hepatitis, Cirrhosis Musculoskeletal: Yes Arthritis, Chronic Back Pain Endocrine: No HEENT: No Loss of Vision: Bilateral Hearing Impairment: Denies Cancer: Yes Liver, Pancreatic Psychosocial: Yes (POLYSUBSTANCE ABUSE;OD/SUICIDE ATTEMPT HYDROCODONE + XANAX 2007) Sleep Difficulties, Suicide Attempts Integumentary: No Blood Disorders: No Adverse Reaction/Blood Tranf: No (HAS HAD BLOOD WITH NO REACTION) Family Medical History Cancer 19 FATHER (LUNG CA) G8 BROTHER (59 YEAR OLD PANCREATIC CANCER) Family history: Diabetes mellitus 19 FATHER 19 MOTHER No Pertinent Family Hx SOCIAL HISTORY: PT IS EXTREMELY VAGUE AND WILL NOT OFFER ANY ADDITIONAL INFORMATION STATES HE QUIT SMOKING, DRUGS AND ALCOHOL ABOUT A MONTH AGO--WILL NOT STATE HOW MUCH HE SMOKED OR DRANK OR FOR HOW LONG, OR WHAT DRUGS HE USED, FOR HOW LONG, OR HOW HE USED THEM. PER OLD CHART: SMOKES 1 PPD, VERY HEAVY ALCOHOL USE, BUT NO SPECIFIC AMOUNT NOTED. Physical Exam Vital Signs Vital Signs - First Documented 05/06/21 13:04 Temp 36.0 Pulse 92 Resp 20 B/P (MAP) 122/74 (90) Pulse Ox 96 O2 Delivery Room Air Capillary Refill : Height, Weight, BMI Height: 6'3.00" Weight: 250lbs. 3.0oz. [id number]; 23.00 BMI Method:Estimated General Appearance: No Apparent Distress, Chronically ill (Temporal wasting bilaterally), Other (Somnolent. Jaundiced. Hiccups noted. Denies pain or nausea.) Eyes: Bilateral Eye Normal Inspection, Bilateral Eye PERRL, Bilateral Eye EOMI, Bilateral Eye Scleral Icterus Neck: Full Range of Motion, Normal Inspection Respiratory: Normal Breath Sounds, No Accessory Muscle Use, No Respiratory Distress Cardiovascular: Regular Rate, Rhythm, Normal Peripheral Pulses Gastrointestinal: Normal Bowel Sounds, Non Tender, Soft Extremity: Normal Capillary Refill, Normal Inspection Neurologic/Psychiatric: Oriented x3, Other (Somnolent) Skin: Warm/Dry, Jaundice Focused Exam Lactate Level 05/06/21 13:43: Lactic Acid Level 3.20*H Lactic Acid Level Laboratory Tests Test 05/06/21 13:43 Lactic Acid Level 3.20 MMOL/L (0.50-2.00) *H Progress/Results/Core Measures Suspected Sepsis SIRS Temperature: Pulse: 92 Respiratory Rate: 20 Laboratory Tests 05/06/21 13:43: White Blood Count 10.4 Blood Pressure 122 /74 Mean: 90 05/06/21 13:43: Lactic Acid Level 3.20*H Laboratory Tests 05/06/21 13:43: Creatinine 0.64, INR Comment 1.6H, Platelet Count 212, Total Bilirubin 7.0H Results/Orders Lab Results Laboratory Tests Test 05/06/21 13:43 05/06/21 14:05 Range/Units White Blood Count 10.4 4.3-11.0 10^3/uL Red Blood Count 3.45 L 4.30-5.52 10^6/uL Hemoglobin 10.7 L 13.3-17.7 g/dL Hematocrit 33 L 40-54 % Mean Corpuscular Volume 96 80-99 fL Mean Corpuscular Hemoglobin 31 25-34 pg Mean Corpuscular Hemoglobin Concent 32 32-36 g/dL Red Cell Distribution Width 16.1 H 10.0-14.5 % Platelet Count 212 130-400 10^3/uL Mean Platelet Volume 10.9 9.0-12.2 fL Immature Granulocyte % (Auto) 2 % Neutrophils (%) (Auto) 80 H 42-75 % Lymphocytes (%) (Auto) 8 L 12-44 % Monocytes (%) (Auto) 10 0-12 % Eosinophils (%) (Auto) 0 0-10 % Basophils (%) (Auto) 1 0-10 % Neutrophils # (Auto) 8.3 H 1.8-7.8 10^3/uL Lymphocytes # (Auto) 0.8 L 1.0-4.0 10^3/uL Monocytes # (Auto) 1.1 H 0.0-1.0 10^3/uL Eosinophils # (Auto) 0.0 0.0-0.3 10^3/uL Basophils # (Auto) 0.1 0.0-0.1 10^3/uL Immature Granulocyte # (Auto) 0.2 H 0.0-0.1 10^3/uL Neutrophils % (Manual) 83 % Lymphocytes % (Manual) 7 % Monocytes % (Manual) 6 % Band Neutrophils 4 % Blood Morphology Comment NORMAL Prothrombin Time 19.8 H 12.2-14.7 SEC INR Comment 1.6 H 0.8-1.4 Sodium Level 128 L 135-145 MMOL/L Potassium Level 3.8 3.6-5.0 MMOL/L Chloride Level 93 L 98-107 MMOL/L Carbon Dioxide Level 26 21-32 MMOL/L Anion Gap 9 5-14 MMOL/L Blood Urea Nitrogen 13 7-18 MG/DL Creatinine 0.64 0.60-1.30 MG/DL Estimat Glomerular Filtration Rate 129 BUN/Creatinine Ratio 20 Glucose Level 170 H 70-105 MG/DL Lactic Acid Level 3.20 *H 0.50-2.00 MMOL/L Calcium Level 8.1 L 8.5-10.1 MG/DL Corrected Calcium 9.7 8.5-10.1 MG/DL Total Bilirubin 7.0 H 0.1-1.0 MG/DL Aspartate Amino Transf (AST/SGOT) 101 H 5-34 U/L Alanine Aminotransferase (ALT/SGPT) 40 0-55 U/L Alkaline Phosphatase 275 H 40-136 U/L Ammonia 39 H 11-32 UMOL/L Total Protein 6.6 6.4-8.2 GM/DL Albumin 2.0 L 3.2-4.5 GM/DL Lipase 168 H 8-78 U/L Procalcitonin 0.39 H <0.10 NG/ML Urine Color YELLOW Urine Clarity CLEAR Urine pH 6.0 5-9 Urine Specific [place] 1.020 1.016-1.022 Urine Protein 1+ H NEGATIVE Urine Glucose (UA) TRACE H NEGATIVE Urine Ketones TRACE H NEGATIVE Urine Nitrite POSITIVE H NEGATIVE Urine Bilirubin 3+ H NEGATIVE Urine Urobilinogen 4.0 < = 1.0 MG/DL Urine Leukocyte Esterase NEGATIVE NEGATIVE Urine RBC (Auto) NEGATIVE NEGATIVE Urine RBC 0-2 /HPF Urine WBC 0-2 /HPF Urine Crystals PRESENT H /LPF Urine Amorphous Sediment FEW RUSTY URATES H /LPF Urine Bacteria NEGATIVE /HPF Urine Casts PRESENT /LPF Urine Granular Casts RARE /LPF Urine Mucus MODERATE H /LPF Urine Culture Indicated NO My Orders Orders - CELY GUEVARA APRN Cbc With Automated Diff (05/06/21 13:31) Comprehensive Metabolic Panel (05/06/21 13:31) Ua Culture If Indicated (05/06/21 13:31) Ed Iv/Invasive Line Start (05/06/21 13:31) Lipase (05/06/21 13:44) Protime With Inr (05/06/21 13:44) Ammonia (05/06/21 13:44) Chest 1 View, Ap/Pa Only (05/06/21 13:44) Lactic Acid Analyzer (05/06/21 13:44) Procalcitonin (Pct) (05/06/21 13:44) Blood Culture (05/06/21 13:44) Metoclopramide Injection (Reglan Injecti (05/06/21 14:15) Lactated Ringers (Lr 1000 Ml Iv Solution (05/06/21 14:15) Manual Differential (05/06/21 13:43) Lactulose Oral Solution (Enulose Oral So (05/06/21 16:00) Medications Given in ED Current Medications Medications Dose Ordered Sig/Lou Route Start Time Stop Time Status Last Admin Dose Admin Lactulose 20 gm ONCE ONCE PO 05/06/21 16:00 05/06/21 16:01 DC 05/06/21 17:50 20 GM Metoclopramide HCl 5 mg ONCE ONCE IVP 05/06/21 14:15 05/06/21 14:16 DC 05/06/21 14:34 5 MG Vital Signs/I&O 05/06/21 05/06/21 13:04 17:56 Temp 36.0 Pulse 92 84 Resp 20 20 B/P (MAP) 122/74 (90) 106/64 Pulse Ox 96 96 O2 Delivery Room Air Room Air Capillary Refill : Blood Pressure Mean: 90 Departure Communication (Admissions) 1442-I discussed hospice with the patient and the family. Patient says he is not ready and the is up all but I have brought this. I discussed with her the note from the [facility] this morning and she states that she never told the nurse she wanted to start hospice and ended up hanging up on that nurse. Either way I told him that he needs to consider hospice like it or not as at some point in the near future he may wish to change his focus on comfort. and daughter would just like him to have some IV fluids and perked him up to get him back to normal, they would like something to control his hiccups and an appetite stimulant. 1506-discussed with Dr. Castillo, since patient has a significantly elevated bilirubin at 7 and is wanting more aggressive treatment plan will need to be transferred to facility with hepatology/gastroenterology. Spoke with [facility], they do not have any beds but the patient's oncologist will call back with recommendations. 1607-I spoken with [facility], they spoke with Dr. Pate from oncology, no value in the patient going there. Discussed with the at the bedside that she may be looking at transfer to [facility] or alternatively a closer [facility] if they have bed availability. Would like to see about getting him a biliary stent to lower the total bilirubin so that he could receive chemotherapy if he wishes to proceed this way. [facility] not have bed availability. We would need a facility with gastroenterology/hepatology. She wants him to be kept here. Discussed with her that he would need a facility with these services. I also offered to put him on some Marinol for appetite stimulant as the daughter had wished for, giving him more fluids and going home. She is also appalled at that suggestion. She says he cannot go home. I discussed with her and the sister Sonia Danielson the plan to continue to look for a facility with GI services and bed availabilit. I also reiterated to her the r mary for suggesting hospice was her conversation documented with [facility] and that she and Darwin have a limited amount of time together and Id like him to be able to enjoy it and spend it with his . She becomes tearful and raises her voice at me to tell me that I am a horrible person and I am the worse person she is ever encountered. Doreen RN at the bedside during all of this. Patient now states that she just wants him to have more fluids and then to go home. Dr Barcenas from oncology is out of town all week and subsequently unable to admit here. I also spoke with Aracelis Fournier from the cancer center, they will be unable to give him his chemo tomorrow because his bilirubin is still high. However they would like him to keep his appointment so that he can come in for IV fluids. Patient himself voices no complaints. He denies pain or nausea. When asked him how he feels about this he states " I dont know ". He voices no needs. 1630-his daughter has arrived, would like updated on the plan. She agrees patie nt needs hospice and apologizes to myself and the nurses for her mother's behavior. 1720-patient's daughter is very pleasant and appreciative of her care. Apologizes for her mother's behavior Again. She has talked to the patient and he would like to go to the hospital for further evaluation and management as he cannot take care of himself at home. is now agreeable with this after she visited with the daughter. I spoke with several hospitals already mentioned and have started the case with [facility] transfer to help facilitate finding a facility. 185-Spoke with [facility], no available bed found yet. Pt stable here currently. 1931- I spoke with [facility] in [place] they do not have any beds. Spoke with the [facility] in [place] which include [facility], [place], research, none of them have beds available. 1947-pt arousable to verbal stimuli, voices no complaints. 2029-Per [facility], The following facilities in [place] do not have any bed availability: [facility] 2157-Per [facility] control The following facilities have no bed availability: [facility], [facility], [facility], [place] [facility], [place] [facility] [facility] [place], [place] [facility], [facility] [place] [facility], [place] [facility] [place], [place] [facility], [place] 2157-discussed with the patient , would be best to go on home and discuss further treatment with Aracelis Fournier from oncology tomorrow as scheduled. Patient has also called Dr. Pitts herself who also called me and I had a conversation with him as well. The patient's fails to grasp the very poor prognosis here but continues to decline comfort measures. Dr. Pitts also mentioned hospice to the patient's . We did help the patient to stand to get into the wheelchair and get into the car which he did with standby assist. Patient thanked us. Impression Primary Impression: Cirrhosis of liver with ascites Additional Impressions: Pancreatic cancer Hepatocellular carcinoma Disposition: XF SHT-TRM HOSP Condition: Stable Admissions Decision to Admit Reason: Admit from ER (General) Decision to Admit/Date: May 06, 2021 Time/Decision to Admit Time: 14:47 Departure-Patient Inst. Decision time for Depature: 15:49 Referrals: KRISSY DOUGLAS MD (PCP/Family) Primary Care Physician Patient Instructions: Pancreatic Cancer Add. Discharge Instructions: 1. Keep your appointment with cancer center tomorrow. Try the medication called dronabinol for appetite stimulation. Scripts Ondansetron (Ondansetron Odt) 4 Mg Tab.rapdis 4 MG PO Q6H PRN for NAUSEA/VOMITING, #8 TAB 0 Refills Prov: CELY GUEVARA DOOR REPAIRMAN 05/06/21 Dronabinol (Syndros) 5 Mg/1 Ml Solution 2.5 MG PO BID for 7 Days, #20 ML Prov: CELY GUEVARA APRN 05/06/21 Copy Copies To 1: LORY PITTS DO; KRISSY DOUGLAS MD, PETER J APRN May 06, 2021 13:48
[2021-05-06 14:07] LABS: INR 1.6 (0.8-1.4); POTASSIUM 3.8 MMOL/L (3.6-5.0); PROTHROMBIN TIME PATIENT 19.8 SEC (12.2-14.7)
[2021-05-06 14:08] LABS: CALCIUM 8.1 MG/DL (8.5-10.1)
[2021-05-06 14:10] LABS: TOTAL PROTEIN 6.6 GM/DL (6.4-8.2)
[2021-05-06 14:12] LABS: BILIRUBIN,URINE 3+ (NEGATIVE); CLARITY,URINE CLEAR; COLOR,URINE YELLOW; GLUCOSE, URINE (UA) TRACE (NEGATIVE); KETONES,URINE TRACE (NEGATIVE); LEUKOCYTE ESTERASE ,URINE NEGATIVE (NEGATIVE); NITRITE,URINE POSITIVE (NEGATIVE); PROTEIN,URINE 1+ (NEGATIVE)
[2021-05-06 14:13] LABS: CREATININE SERUM 0.64 MG/DL (0.60-1.30)
[2021-05-06] MEDS ORDERED: METOCLOPRAMIDE INJ 10 MG/2 ML (REGLAN) IVP ONE (14:15)
[2021-05-06 14:30] LABS: BASOPHILS # (AUTO) 0.1 10^3/uL (0.0-0.1); BASOPHILS % (AUTO) 1 % (0-10); EOSINOPHILS % (AUTO) 0 % (0-10); HEMATOCRIT 33 % (40-54); HEMOGLOBIN 10.7 g/dL (13.3-17.7); LYMPHOCYTES # (AUTO) 0.8 10^3/uL (1.0-4.0); LYMPHOCYTES % (AUTO) 8 % (12-44); MEAN CORPUSCULAR HEMOGLOBIN 31 pg (25-34); MEAN CORPUSCULAR HGB CONC 32 g/dL (32-36); MEAN CORPUSCULAR VOLUME 96 fL (80-99); MEAN PLATELET VOLUME 10.9 fL (9.0-12.2); MONOCYTES # (AUTO) 1.1 10^3/uL (0.0-1.0); MONOCYTES % (AUTO) 10 % (0-12); NEUTROPHILS # (AUTO) 8.3 10^3/uL (1.8-7.8); NEUTROPHILS % (AUTO) 80 % (42-75); PLATELET COUNT 212 10^3/uL (130-400); WHITE BLOOD COUNT 10.4 10^3/uL (4.3-11.0)
[2021-05-06] MEDS: LACTATED RINGERS 1,000 ML IV SCH ×2 (14:34→16:08)
[2021-05-06 14:37] LABS: AMORPHOUS SEDIMENT,UR FEW AMOR URATES /LPF; BACTERIA,URINE NEGATIVE /HPF; RBC,URINE 0-2 /HPF; WBC,URINE 0-2 /HPF
[2021-05-06 14:38] LABS: GRANULAR CASTS,URINE RARE /LPF
--- NOTE | 2021-05-06 14:54 | Diagnostic Imaging Report ---
INDICATION: Confusion. TECHNIQUE/COMPARISON: An AP view of the chest was obtained with comparison made to the study of 04/19/2021. FINDINGS: The overall heart size and pulmonary vascularity are within normal limits. There is continued blunting of the right costophrenic sulcus indicating pleural fluid. There is mild increased density in the right perihilar region as well. No pneumothorax is identified. IMPRESSION: Mild increase in right perihilar edema and/or pneumonitis with associated right pleural effusion. Dictated by: Dictated on workstation # [id number]
[2021-05-06 14:56] LABS: BAND NEUTROPHILS 4 %; LYMPHOCYTES % (MANUAL) 7 %; MONOCYTES % (MANUAL) 6 %; NEUTROPHILS % (MANUAL) 83 %; RBC MORPH NORMAL
[2021-05-06] MEDS ORDERED: DRON5SOL PO (15:52)
[2021-05-06] MEDS ORDERED: LACTULOSE SYRUP 10GM/15ML (ENULOSE) 30ML UDC PO ONE (16:00)
[2021-05-06] MEDS ORDERED: ONDA4TAB11 PO (20:51)
[2021-05-06 22:13] VITALS: BP 106/69
== END 2021-05-06 22:14 | disposition short-term general hospital (02) ==
LOC: ER 12:53 → EDUNIT# 12:55 → ER 22:14
DX: K74.60 Unspecified cirrhosis of liver (principal); C22.0 Liver cell carcinoma; C25.9 Malignant neoplasm of pancreas, unspecified; R18.8 Other ascites; I10 Essential (primary) hypertension; J43.9 Emphysema, unspecified; G89.29 Other chronic pain; M54.9 Dorsalgia, unspecified; Z87.891 Personal history of nicotine dependence; Z79.891 Long term (current) use of opiate analgesic; Z79.899 Other long term (current) drug therapy
CPT/HCPCS: 36415; 71045; 80053; 81000; 82140; 83605; 83690; 84145; 85007; 85027; 85610; 87040

== ENCOUNTER 2021-05-07 09:11 | Outpatient (RCR) | payer MEDICARE ==
[2021-04-10 15:46] LABS: BASOPHILS % (AUTO) 0 % (0-10); EOSINOPHILS # (AUTO) 0.1 10^3/uL (0.0-0.3); EOSINOPHILS % (AUTO) 1 % (0-10); HEMATOCRIT 38 % (40-54); HEMOGLOBIN 12.4 g/dL (13.3-17.7); LYMPHOCYTES # (AUTO) 1.4 10^3/uL (1.0-4.0); LYMPHOCYTES % (AUTO) 19 % (12-44); MEAN CORPUSCULAR HEMOGLOBIN 32 pg (25-34); MEAN CORPUSCULAR HGB CONC 33 g/dL (32-36); MEAN CORPUSCULAR VOLUME 98 fL (80-99); MONOCYTES # (AUTO) 0.7 10^3/uL (0.0-1.0); MONOCYTES % (AUTO) 10 % (0-12); NEUTROPHILS # (AUTO) 4.9 10^3/uL (1.8-7.8); NEUTROPHILS % (AUTO) 69 % (42-75); PLATELET COUNT 287 10^3/uL (130-400); WHITE BLOOD COUNT 7.1 10^3/uL (4.3-11.0)
--- NOTE | 2021-04-10 16:02 | Diagnostic Imaging Report ---
INDICATION: Chronic obstructive pulmonary disease. EXAMINATION: PA and lateral views of the chest were obtained. COMPARISON: Study of 09/13/2013. FINDINGS: There has been development of moderate amount of right pleural fluid and/or thickening. Subjacent atelectasis and/or scarring is also present in the right lower lobe. There is no pneumothorax. IMPRESSION: Development of moderate right pleural fluid and/or thickening. Clinical correlation would be useful. Consideration could be given to decubitus view or ultrasound to exclude loculation. Dictated by: Dictated on workstation # [id number]
[2021-04-10 16:05] LABS: ALBUMIN 2.9 GM/DL (3.2-4.5); BILIRUBIN,TOTAL 2.2 MG/DL (0.1-1.0); CALCIUM 8.7 MG/DL (8.5-10.1); CREATININE SERUM 0.69 MG/DL (0.60-1.30); POTASSIUM 3.9 MMOL/L (3.6-5.0); TOTAL PROTEIN 8.1 GM/DL (6.4-8.2)
[2021-04-30 13:43] LABS: BASOPHILS # (AUTO) 0.1 10^3/uL (0.0-0.1); BASOPHILS % (AUTO) 0 % (0-10); EOSINOPHILS % (AUTO) 0 % (0-10); HEMATOCRIT 35 % (40-54); HEMOGLOBIN 11.3 g/dL (13.3-17.7); LYMPHOCYTES # (AUTO) 0.9 10^3/uL (1.0-4.0); LYMPHOCYTES % (AUTO) 8 % (12-44); MEAN CORPUSCULAR HEMOGLOBIN 31 pg (25-34); MEAN CORPUSCULAR HGB CONC 32 g/dL (32-36); MEAN CORPUSCULAR VOLUME 97 fL (80-99); MEAN PLATELET VOLUME 10.4 fL (9.0-12.2); MONOCYTES % (AUTO) 9 % (0-12); NEUTROPHILS # (AUTO) 9.5 10^3/uL (1.8-7.8); NEUTROPHILS % (AUTO) 81 % (42-75); PLATELET COUNT 261 10^3/uL (130-400); WHITE BLOOD COUNT 11.7 10^3/uL (4.3-11.0)
[2021-04-30 14:05] LABS: ALBUMIN 2.4 GM/DL (3.2-4.5); BILIRUBIN,TOTAL 7.1 MG/DL (0.1-1.0); CALCIUM 8.3 MG/DL (8.5-10.1); CREATININE SERUM 0.67 MG/DL (0.60-1.30); POTASSIUM 3.7 MMOL/L (3.6-5.0); TOTAL PROTEIN 7.2 GM/DL (6.4-8.2)
[~2021-05-07] VITALS: Ht 190.5 cm; Wt 95.7 kg
[~2021-05-07 09:11] MED LIST changes: +ATROPINE INJ 0.4 MG/ML SDV (CANCER CENTER) INJ SCH; +D5W 500 ML IV (CANCER CTR) 500 ML IV SCH; +DRON5SOL PO; +FLUOROURACIL IV SCH; +FOSAPREPITANT (CANCER CENTER) 150 MG in NS (IVPB) CANCER CENTER ONLY 150 ML IV SCH; +IRINOTECAN HCL 200 MG, IRINOTECAN HCL 40 MG in D5W 250 ML IVPB (CANCER CTR) 250 ML IV SCH; +LEUCOVORIN CALCIUM 600 MG in D5W 250 ML IVPB (CANCER CTR) 250 ML IV SCH; +NS IV SCH; +ONDA4TAB11 PO; +OXALIPLATIN 100 MG, OXALIPLATIN (GENERIC) 30 MG in D5W 250 ML IVPB (CANCER CTR) 250 ML IV SCH
[2021-05-07] MEDS ORDERED: NS IV 1000 ML (CANCER CTR) 1,000 ML ONE (09:40)
[2021-05-07 09:55] LABS: BASOPHILS # (AUTO) 0.1 10^3/uL (0.0-0.1); BASOPHILS % (AUTO) 1 % (0-10); EOSINOPHILS % (AUTO) 0 % (0-10); HEMATOCRIT 30 % (40-54); HEMOGLOBIN 9.9 g/dL (13.3-17.7); LYMPHOCYTES # (AUTO) 0.7 10^3/uL (1.0-4.0); LYMPHOCYTES % (AUTO) 6 % (12-44); MEAN CORPUSCULAR HEMOGLOBIN 31 pg (25-34); MEAN CORPUSCULAR HGB CONC 33 g/dL (32-36); MEAN CORPUSCULAR VOLUME 94 fL (80-99); MEAN PLATELET VOLUME 10.3 fL (9.0-12.2); MONOCYTES # (AUTO) 1.1 10^3/uL (0.0-1.0); MONOCYTES % (AUTO) 8 % (0-12); NEUTROPHILS % (AUTO) 84 % (42-75); PLATELET COUNT 223 10^3/uL (130-400); WHITE BLOOD COUNT 13.1 10^3/uL (4.3-11.0)
[2021-05-07 10:13] LABS: ALBUMIN 2.1 GM/DL (3.2-4.5); BILIRUBIN,TOTAL 7.3 MG/DL (0.1-1.0); CALCIUM 7.9 MG/DL (8.5-10.1); CREATININE SERUM 0.66 MG/DL (0.60-1.30); POTASSIUM 3.8 MMOL/L (3.6-5.0); TOTAL PROTEIN 6.8 GM/DL (6.4-8.2)
== END 2021-05-10 | disposition home or self-care (01) ==
LOC: ONC 09:11
PROVIDERS: ATTEND Internal Medicine Hematology & Oncology
DX: Z51.11 Encounter for antineoplastic chemotherapy (principal); C25.9 Malignant neoplasm of pancreas, unspecified; C22.7 Other specified carcinomas of liver; K74.60 Unspecified cirrhosis of liver; J44.9 Chronic obstructive pulmonary disease, unspecified; E66.9 Obesity, unspecified; Z87.891 Personal history of nicotine dependence
CPT/HCPCS: 71046; 80053; 82105; 85025; 86301; G0463; 36591; 82140; 96367; 96375; 96413; 99214

== ENCOUNTER 2021-05-07 14:49 | Emergency (ER) | payer MEDICARE ==
[~2021-05-07] VITALS: Ht 190.5 cm; Wt 59.0 kg
[~2021-05-07 14:49] MED LIST changes: -ATROPINE INJ 0.4 MG/ML SDV (CANCER CENTER) INJ SCH; -D5W 500 ML IV (CANCER CTR) 500 ML IV SCH; -FLUOROURACIL IV SCH; -FOSAPREPITANT (CANCER CENTER) 150 MG in NS (IVPB) CANCER CENTER ONLY 150 ML IV SCH; -IRINOTECAN HCL 200 MG, IRINOTECAN HCL 40 MG in D5W 250 ML IVPB (CANCER CTR) 250 ML IV SCH; -LEUCOVORIN CALCIUM 600 MG in D5W 250 ML IVPB (CANCER CTR) 250 ML IV SCH; -NS IV SCH; -OXALIPLATIN 100 MG, OXALIPLATIN (GENERIC) 30 MG in D5W 250 ML IVPB (CANCER CTR) 250 ML IV SCH
[2021-05-07 16:33] VITALS: BP 115/70
== END 2021-05-07 16:33 | disposition left against medical advice (07) ==
LOC: EDUNIT# 14:49 → ER 14:50
DX: R52 Pain, unspecified (principal)
CPT/HCPCS: 99281